=== PATIENT | female | born 1990 | race Caucasian/White ===

== ENCOUNTER 2019-09-11 21:53 | Inpatient (IN) ==
[~2019-09-11 21:53] MED LIST: ETOMIDATE 2 MG/ML 20 ML VIAL IV ONE; ROCURONIUM BROMIDE 10 MG/ML 10 ML VIAL IV ONE
[2019-09-11] MEDS ORDERED: ONDANSETRON INJ 2 MG/ML 2 ML VIAL ONE (21:59)
[2019-09-11] MEDS ORDERED: LORazepam 2 MG/ML VIAL (IM USE) ONE (22:01)
[2019-09-11] MEDS ORDERED: SODIUM CHLORIDE 0.9% 1000ML 1,000 ML IV SCH (22:15)
[2019-09-11] MEDS ORDERED: RAPID SEQUENCE INDUCTION BAG ONE (22:28)
[2019-09-11] MEDS ORDERED: PROPOFOL IV EMULSION 10 MG/ML 20 ML VIAL IV ONE (22:31)
[2019-09-11 22:32] LABS: Basophils # (auto) 0.02 K/uL (0-0.2); Basophils % (auto) 0.1 %; Eosinophils # (auto) 0.08 K/uL (0-0.5); Eosinophils % (auto) 0.5 %; Hematocrit (blood only) 43.5 % (37-47); Hemoglobin 15.1 g/dL (12.0-16.0); Immature Granulocytes # (auto) 0.04 K/uL (0.00-0.02); Immature Granulocytes % (auto) 0.2 %; Lymphocytes # (auto) 2.85 K/uL (1.2-3.4); Lymphocytes % (auto) 17.7 %; Mean Corpuscular Hemoglobin 30.3 pg (25-34); Mean Corpuscular Hgb Conc 34.7 g/dL (32-36); Mean Corpuscular Volume 87.3 fL (80-100); Mean Platelet Volume 10.3 fL (7.4-10.4); Monocytes # (auto) 1.38 K/uL (0.11-0.59); Monocytes % (auto) 8.6 %; Neutrophils # (auto) 11.76 K/uL (1.4-6.5); Neutrophils % (auto) 72.9 %; Platelet Count 406 K/uL (130-400); RDW Coefficient of Variation 13.6 % (11.5-14.5); RDW Standard Deviation 43.4 fL (36.4-46.3); Red Blood Count 4.98 M/uL (4.2-5.4); White Blood Count 16.13 K/uL (4.8-10.8)
[2019-09-11] MEDS ORDERED: PROPOFOL IV EMULSION 10 MG/ML 100 ML VIAL IV ONE (22:32)
[2019-09-11] MEDS ORDERED: STAT IV Infusion **Titration per Protocol STA (22:39)
[2019-09-11 22:41] LABS: Prothrombin Time 10.3 Seconds (9.0-12.0)
[2019-09-11] MEDS ORDERED: ETOMIDATE 2 MG/ML 20 ML VIAL IV ONE (22:41)
[2019-09-11] MEDS ORDERED: ROCURONIUM BROMIDE 10 MG/ML 5 ML VIAL IV STA (22:41)
[2019-09-11] MEDS: propofoL 1,000 MG/100 ML VIAL IV SCH (22:43)
[2019-09-11 22:50] LABS: Alanine Aminotransferase 23 U/L (12-78); Albumin Level 3.9 gm/dl (3.4-5.0); Aspartate Aminotransferase 22 U/L (15-37); BUN Creatinine Ratio 9.5 (10-20); Blood Urea Nitrogen 8 mg/dl (7-18); Calcium 9.5 mg/dl (8.5-10.1); Carbon Dioxide 24 mmol/L (21-32); Chloride 108 mmol/L (98-107); Creatinine Clr Calc Pharmacy 98.1 ml/min; Est GFR (Non-African American) 97.5; Glucose 132 mg/dl (70-99); Magnesium 2.1 mg/dl (1.8-2.4); Potassium 3.1 mmol/L (3.5-5.1); Sodium 140 mmol/L (136-145)
[2019-09-11 22:52] LABS: Acetaminophen < 2 ug/ml (10-30); Salicylate 2.9 mg/dl (2.8-20)
[2019-09-11 22:54] LABS: Albumin Globulin Ratio 1.1 (0.9-2); Alkaline Phosphatase 72 U/L (45-117); Bilirubin,Total 0.3 mg/dl (0.2-1); Creatine Kinase 117 U/L (26-192); Globulin 3.4 gm/dl (2.5-4.0); Total Protein 7.3 gm/dl (6.4-8.2); Troponin I < 0.015 ng/ml (0-0.045)
[2019-09-11 23:04] LABS: Pregnancy Test, Serum Negative (Negative)
[2019-09-11 23:42] LABS: Appearance Urine Cloudy (Clear); Bilirubin Urine Negative (Negative); Blood Urine Negative (Negative); Color Urine Yellow; Epithelial Cell Urine Auto >30 /lpf (0-5); Glucose Urine UA Negative (Negative); Ketones Urine 1+ (Negative); Leukocyte Esterase Urine Negative (Negative); Nitrite Urine Negative (Negative); Protein Urine Negative (Negative); RBC Urine Automated 0-4 /hpf (0-4); Specific Gravity Urine 1.015 (1.000-1.030); Urobilinogen Urine Negative (Negative)
--- NOTE | 2019-09-11 23:45 | History & Physical Report ---
Date of Service September 11, 2019 Assessment & Plan (1) AMS (altered mental status): Patient presented to the emergency department with altered mental state. Urine drug screen is pending at this time, however, patient was felt to have taken a complete month supply of her prescription Trileptal and gabapentin. She is also on methadone for opiate dependence, and unknown if taken additional dosings at this time as well. Patient developed progressively altered mentation, with intractable vomiting, and was intubated in the emergency department for airway protection. Admit to intensive care unit. Order serial CBC with differential, chemistry profile, magnesium, lipase, PT/PTT/INR and ABGs. Adjustments in ventilator as testing requires. Continue Diprovan for sedation. NSS + KCl 20 mEq at 100 mils per hour Zofran 4 mg IV every 6 hours as needed Famotidine 20 mg IV every 12 hours Present on Admission?: Yes (2) Admitted to intensive care unit: Consult lead relay tester Dr. Yanes. Present on Admission?: Yes (3) Overdose: Presumed overdose intentionally of Trileptal and gabapentin. We will follow results of urine drug screen for any other potential drugs. She is also on methadone for long-term opiate dependence Present on Admission?: Yes (4) Acute respiratory failure with hypoxia: See above Present on Admission?: Yes (5) Nausea & vomiting: See above Present on Admission?: Yes (6) Bipolar disorder: Patient had refills of unknown doses of Trileptal and gabapentin by outpatient psychiatry Present on Admission?: Yes (7) Long-term current use of methadone for opiate dependence: Will verify dosing of methadone. Patient is intubated and sedated, and not needed at this time. Present on Admission?: Yes (8) Bleeding stomach ulcer: Placed on famotidine 20 mg IV every 12 hours Present on Admission?: Yes History of Present Illness Chief Complaint: The patient was brought to the emergency department via ambulance, after found by her boyfriend to have a possible intentional drug ove rdose. Primary Care Provider: NO PCP The patient is a 28-year-old female with a past medical history including asthma, bipolar disorder, opiate dependence, and insomnia, who was brought to the emergency department due to concerns of her boyfriend regarding a possible intentional drug overdose. He reports that she had taken at least 30 days worth, up to 60 pills of Trileptal and gabapentin prescription, which she had just filled yesterday. She had also told her boyfriend that she could do a better job of killing herself and he did, as he is himself recovering from a suicide attempt. EMS reports that the patient was initially responsive upon arrival there to her home, but became minimally responsive, with vomiting and thrashing in the bed when arrived to the ED, and was then intubated for airway protection. The patient is also reportedly on an unknown dose of methadone, and is marijuana dependent. Allergies Allergy/AdvReac Type Severity Reaction Status Date / Time azithromycin [From Zithromax] Allergy Unknown Rash Verified 06/11/19 12:59 Penicillins Allergy Unknown RASH Verified 06/11/19 12:59 valproic acid Allergy Unknown Unknown Verified 06/11/19 12:59 amoxicillin [From Augmentin] Allergy Verified 06/11/19 12:59 clavulanic acid Allergy Verified 06/11/19 12:59 [From Augmentin] divalproex sodium Allergy Anaphylaxis Verified 06/11/19 13:08 [From Depakote] Home Medications Home Medications Medication Instructions Recorded Confirmed Type Unobtainable 09/11/19 09/11/19 History Past Med/Surg History Medical History (Updated 09/12/19 @ 01:36 by Bruce Chou MD) Asthma (Chronic) Bipolar disorder (Chronic) Bleeding stomach ulcer Bronchitis (Resolved) Chlamydia contact (Resolved) Dehydration (Inactive) Elective Exposure to chlamydia (Resolved) Extremity edema (Inactive) Extremity pain (Inactive) Gastritis (Inactive) HTN (hypertension) (Inactive) Hx of varicella Insomnia (Chronic) LGSIL on Pap smear of cervix Long-term current use of methadone for opiate dependence Maternal kidney stone Miscarriage Opiate withdrawal (Resolved) Pain, dental (Inactive) Pneumonia (Resolved) Right foot sprain (Inactive) Vaginal delivery Vomiting (Inactive) Surgical History (Updated 06/11/19 @ 13:24 by Cassy Arellano) H/O LEEP History of tonsillectomy (Resolved) S/P ureteral stent placement placement and removal in 2019 Social History (Updated 06/11/19 @ 13:33 by Cassy Arellano) Preferred Language: Pashto Communication Ability: intubated Beliefs That Will Affect Care: None marital status: Single marital status details: ALEYDA Johnathon Schultz (38) [phone] Current Living Situation: Spouse Current Living Situation Comment: lives with FOB, 1 dog, 1 cat, does not change litter current occupational status: unemployed Feels Safe at Home: Yes Smoking Status: Current every day smoker Tobacco Type: cigarettes ; Second Hand Exposure: Yes ; Hx Alcohol Use: No Hx Substance Use: No Review of Systems Review of Systems: Physical Exam Physical Exam: The patient is sedated and intubated, normocephalic and atraumatic, lying in bed and in otherwise no acute distress. HEENT--PERRL, EOMI, mucous membranes and oropharynx dry. Neck--supple. No JVD. No bruits. Thyroid normal, trachea midline, no adenopathy. Heart--normal S1 and S2. No murmurs, rubs or gallops. Lungs--few coarse breath sounds bilaterally. Intubated. Abdomen--normal bowel sounds and soft. Nontender. Nondistended. Extremities--no cyanosis or clubbing. No edema. There are good distal pulses b/l. Dermatologic--psoriasis on knees bilaterally, with scattered MRSA-like papular areas on legs bilaterally. Neurologic--limited exam Rheumatologic--limited exam Psychiatric--intubated and sedated Results & Data Results & Data ([facility]) Vital Signs (Past 12 Hours) Vital Signs Temp Pulse Resp BP Pulse Ox 09/11/19 23:41 70 18 98 09/11/19 23:40 69 18 110/73 98 09/11/19 23:31 70 20 99 09/11/19 23:30 71 18 108/73 99 09/11/19 23:21 70 18 100 09/11/19 23:20 71 25 H 113/87 100 09/11/19 23:17 72 18 100 09/11/19 23:11 72 17 100 09/11/19 23:10 71 14 118/90 100 09/11/19 23:01 74 16 100 09/11/19 23:00 74 17 123/93 100 09/11/19 22:51 86 18 100 09/11/19 22:50 86 16 127/91 100 09/11/19 22:49 87 16 120/92 100 09/11/19 22:40 108 H 8 L 09/11/19 22:36 75 14 09/11/19 22:31 90 6 L 09/11/19 22:30 88 9 L 134/81 99 09/11/19 22:29 97 H 11 L 131/100 100 09/11/19 22:22 98.6 F 132 H 9 L 152/97 H 88 L 09/11/19 22:21 13 99 09/11/19 22:20 96 H 11 L 135/96 100 09/11/19 22:14 108 H 15 135/90 96 09/11/19 22:13 120 H 17 85 L 09/11/19 21:57 114 H 20 152/97 H 98 Laboratory Results Laboratory Results WBC 16.13 K/uL (4.8-10.8) H 09/11/19 22:08 RBC 4.98 M/uL (4.2-5.4) 09/11/19 22:08 Hgb 15.1 g/dL (12.0-16.0) 09/11/19 22:08 Hct 43.5 % (37-47) 09/11/19 22:08 MCV 87.3 fL (80-100) 09/11/19 22:08 MCH 30.3 pg (25-34) 09/11/19 22:08 MCHC 34.7 g/dL (32-36) 09/11/19 22:08 RDW Std Deviation 43.4 fL (36.4-46.3) 09/11/19 22:08 RDW Coeff of Carey 13.6 % (11.5-14.5) 09/11/19 22:08 Plt Count 406 K/uL (130-400) H 09/11/19 22:08 MPV 10.3 fL (7.4-10.4) 09/11/19 22:08 Immature Gran % (Auto) 0.2 % 09/11/19 22:08 Neut % (Auto) 72.9 % 09/11/19 22:08 Lymph % (Auto) 17.7 % 09/11/19 22:08 Island % (Auto) 8.6 % 09/11/19 22:08 Eos % (Auto) 0.5 % 09/11/19 22:08 Baso % (Auto) 0.1 % 09/11/19 22:08 Neut # (Auto) 11.76 K/uL (1.4-6.5) H 09/11/19 22:08 Lymph # (Auto) 2.85 K/uL (1.2-3.4) 09/11/19 22:08 Island # (Auto) 1.38 K/uL (0.11-0.59) H 09/11/19 22:08 Eos # (Auto) 0.08 K/uL (0-0.5) 09/11/19 22:08 Baso # (Auto) 0.02 K/uL (0-0.2) 09/11/19 22:08 Immature Gran # (Auto) 0.04 K/uL (0.00-0.02) H 09/11/19 22:08 PT 10.3 Seconds (9.0-12.0) 09/11/19 22:08 INR 1.0 (0.9-1.1) 09/11/19 22:08 Sodium 140 mmol/L (136-145) 09/11/19 22:08 Potassium 3.1 mmol/L (3.5-5.1) L 09/11/19 22:08 Chloride 108 mmol/L (98-107) H 09/11/19 22:08 Carbon Dioxide 24 mmol/L (21-32) 09/11/19 22:08 Anion Gap 8.0 (3-11) 09/11/19 22:08 BUN 8 mg/dl (7-18) 09/11/19 22:08 Creatinine 0.81 mg/dl (0.6-1.2) 09/11/19 22:08 Est Cr Clr Drug Dosing 98.1 ml/min 09/11/19 22:08 Est GFR ( Amer) 113.0 09/11/19 22:08 Est GFR (Non-Af Amer) 97.5 09/11/19 22:08 BUN/Creatinine Ratio 9.5 (10-20) L 09/11/19 22:08 Glucose 132 mg/dl (70-99) H 09/11/19 22:08 Osmolality 289 mOsm/kg (280-300) 09/11/19 22:08 Calcium 9.5 mg/dl (8.5-10.1) 09/11/19 22:08 Magnesium 2.1 mg/dl (1.8-2.4) 09/11/19 22:08 Total Bilirubin 0.3 mg/dl (0.2-1) 09/11/19 22:08 AST 22 U/L (15-37) 09/11/19 22:08 ALT 23 U/L (12-78) 09/11/19 22:08 Alkaline Phosphatase 72 U/L (45-117) 09/11/19 22:08 Total Creatine Kinase 117 U/L (26-192) 09/11/19 22:08 Troponin I < 0.015 ng/ml (0-0.045) 09/11/19 22:08 Total Protein 7.3 gm/dl (6.4-8.2) 09/11/19 22:08 Albumin 3.9 gm/dl (3.4-5.0) 09/11/19 22:08 Globulin 3.4 gm/dl (2.5-4.0) 09/11/19 22:08 Albumin/Globulin Ratio 1.1 (0.9-2) 09/11/19 22:08 HCG, Qual Negative (Negative) 09/11/19 22:08 Urine Color Yellow 09/11/19 22:48 Urine Appearance Cloudy (Clear) A 09/11/19 22:48 Urine pH 8.0 (4.5-7.5) H 09/11/19 22:48 Ur Specific Banner 1.015 (1.000-1.030) 09/11/19 22:48 Urine Protein Negative (Negative) 09/11/19 22:48 Urine Glucose (UA) Negative (Negative) 09/11/19 22:48 Urine Ketones 1+ (Negative) H 09/11/19 22:48 Urine Blood Negative (Negative) 09/11/19 22:48 Urine Nitrite Negative (Negative) 09/11/19 22:48 Urine Bilirubin Negative (Negative) 09/11/19 22:48 Urine Urobilinogen Negative (Negative) 09/11/19 22:48 Ur Leukocyte Esterase Negative (Negative) 09/11/19 22:48 Urine WBC (Auto) 1-5 /hpf (0-5) 09/11/19 22:48 Urine RBC (Auto) 0-4 /hpf (0-4) 09/11/19 22:48 U Hyaline Cast (Auto) 1-5 /lpf (0-5) 09/11/19 22:48 U Epithel Cells (Auto) >30 /lpf (0-5) H 09/11/19 22:48 Urine Bacteria (Auto) 2+ (Negative) H 09/11/19 22:48 Ur Renal Epithelial Cell Not Reportable 09/11/19 22:48 Salicylates 2.9 mg/dl (2.8-20) 09/11/19 22:08 Urine Opiates Screen Neg (Neg) 09/11/19 22:48 Ur Methadone, Qual Pos (Neg) H 09/11/19 22:48 Acetaminophen < 2 ug/ml (10-30) L 09/11/19 22:08 Urine Barbiturates Neg (Neg) 09/11/19 22:48 Ur Phencyclidine (PCP) Neg (Neg) 09/11/19 22:48 U Amphetamin/Meth Scrn Neg (Neg) 09/11/19 22:48 MDMA (Ecstasy) Screen Neg (Neg) 09/11/19 22:48 U Benzodiazepines Scrn Neg (Neg) 09/11/19 22:48 Ur Cocaine Metabolite Neg (Neg) 09/11/19 22:48 U Marijuana (THC) Screen Pos (Neg) H 09/11/19 22:48 Ethyl Alcohol mg/dL < 3.0 mg/dl (0-3) 09/11/19 22:08 Diagnostic Findings [facility] Patient: ANASTACIO CERVANTES (Female) : 86 Status: IP Date: 09/12/19 00:42 Room #: 101 History: OVERDOSE AMS Slices: 66 Priors: Tech: Shawn Mayes @ [phone] Exams: CT HEAD Accession Numbers: [id number] Preliminary Findings Only See Final Report For Complete Findings CT HEAD: No ICH, mass effect or edema. No evidence of acute cortical stroke. No midline shift or hydrocephalus. Mucous retention cyst at the maxillary sinuses. Scattered paranasal sinus mucosal thickening. Radiologist: Navi Pamler M.D. Study ready at 00:43 and initial results transmitted at 01:21 Results also transmitted to [address] [place] [address] ICU @ [phone] (Fax) *This report constitutes a preliminary interpretation only. Non-acute findings felt to be unrelated to the clinical presentation may not be discussed in this report. The study will be interpreted and a final report will be generated by the local Radiologist the following shift. To reach the hospital radiology department call [phone]. If a discrepancy is found between the preliminary and final interpretations of this study, please notify us via our Client Portal at [email or web address], under QA Exams.You can also fax this report with a description of the discrepancy, or include the final report, to our daytime fax number [phone].If faxing, please indicate the severity of discrepancy using one of the following categories: [ ] 1 - Agree/Informational [ ] 2 - Unlikely to Affect Management [ ] 3 - Possible Eventual Change of Management [ ] 4 - Probable Immediate Change of Management For all other patient related information, please fax us at [phone]. [id number] Code Status & VTE Plan Code Status Full code VTE Prophylaxis Plan VTE Prophylaxis will be ordered: Yes Critical Care Time Critical Care Time: Yes Total Critical Care Time: 45 Total critical care time was 45 minutes PG Care Time/CCT Total # of Minutes Spent Total Time Spent with Patient: Total time spent is greater than 50% in coordination of care (as documented) at patient's floor/unit and/or counseling patient: Critical Care Time: Yes Total Critical Care Time: 45 Coding Level of Care Code 58337 Initial Inpt Care Lvl 3 Diagnoses AMS (altered mental status) R41.82 Altered mental status type: unspecified Admitted to intensive care unit Z78.9 Overdose T50.904A Encounter type: initial encounter Injury intent: undetermined intent Acute respiratory failure with hypoxia J96.01 Nausea & vomiting R11.2 Vomiting Intractability: unspecified Vomiting type: unspecified Bipolar disorder F31.9 Long-term current use of methadone for opiate dependence F11.20 Bleeding stomach ulcer K25.4 Additional Codes Critical Care Time - Critical Care Time: Yes ([id number]) Time Spent (min) 45 (1) Overdose Encounter type: initial encounter Injury intent: undetermined intent Qualified Code(s): T50.904A - Poisoning by unspecified drugs, medicaments and biological substances, undetermined, initial encounter (2) Nausea & vomiting Vomiting Intractability: unspecified Vomiting type: unspecified Qualified Code(s): R11.2 - Nausea with vomiting, unspecified (3) AMS (altered mental status) Altered mental status type: unspecified Qualified Code(s): R41.82 - Altered mental status, unspecified
[2019-09-12 00:03] LABS: Bacteria Urine Automated 2+ (Negative)
[2019-09-12 00:12] LABS: Amphetamines+Metham, Urine Neg (Neg); Barbiturates, Urine Neg (Neg); Benzodiazepine, Urine Neg (Neg); Cocaine, Urine Neg (Neg); MDMA (Ecstacy), Urine Neg (Neg); Methadone, Urine Pos (Neg); Opiate, Urine Neg (Neg); Phencyclidine, Urine Neg (Neg)
[2019-09-12] MEDS: PROPOFOL BOLUS FROM BAG IV PRN ×2 (00:35→00:40)
[2019-09-12] MEDS ORDERED: ICU PROTOCOL FOR HYPERGLYCEMIA PRN (00:53)
[2019-09-12] MEDS ORDERED: FAMOTIDINE 20 MG in SYRINGE 3 ML IV SCH (01:00)
--- NOTE | 2019-09-12 01:03 | Emergency Department Note ---
Impression & Plan AMS (altered mental status), Overdose, Acute respiratory failure with hypoxia, Nausea & vomiting ED Provider Note Provider: Jose Chu MD DATE OF SERVICE: 09/11/2019 CHIEF COMPLAINT: Overdose HISTORY OF PRESENT ILLNESS: Patient is a 28-year-old female with a history of methadone dependence, bipolar disorder, asthma presenting today via ambulance from home after her boyfriend became concerned about a possible overdose. EMS states the patient was alert for them but just prior to arrival became less responsive. Was called to the room by staff as upon arrival the patient was minimally responsive and vomiting and thrashing in bed. Seen immediately in room A4. Patient's eyes are closed. Not following commands. She relays to loud verbal stimuli that she took some Trileptal but is unsure if she did this to harm her self. She is unable provide additional history. EMS state that 300 mg Trileptal tablets approximately up to 60 were taken as well as some gabapentin. The patient is also reportedly on methadone. No additional history of trauma or infectious symptoms are reported. Patient's boyfriend, Sreekanth, later calls (after the patient's been intubated) and gives additional information. Case management also get information from crisis and the boyfriend and them indicates that he became concerned over the last several days about her (the patient) and had her see a psychiatrist yesterday prescribed gabapentin and Trileptal and many of these pills are missing today although the exact amount is somewhat questionable. Reported marijuana usage and does go and get methadone given out daily. He reports to me that she said that she could commit suicide better than him and that was why she was doing this. Patient is again unable to directly provide significant history to me here. REVIEW OF SYSTEMS: Limited secondary to mental status PAST MEDICAL HISTORY: As noted above MEDICATIONS: Limited secondary mental status but reported methadone, gabapentin, and Trileptal FMH: Limited secondary mental status SOCIAL HISTORY: Reported history of methadone use and narcotic use in the past, reported use of marijuana, an additional limited secondary to mental status PHYSICAL EXAM: GENERAL: Patient lying on stretcher with eyes closed head to the side with dried vomitus on the face and neck. Patient alert to very loud verbal stimuli and sternal rub at this time/painful stimuli. Head: normocephalic and atraumatic with some dried vomitus over the lower face and neck. EYES: No injection, discharge or icterus. Pupils reactive to light and 5 mm bilaterally. NECK: Trachea midline. Supple. Some dried vomitus on the neck. ENT: Mucous membranes pink and moist. LUNGS: Airway patent. No retractions. Breath sounds clear HEART: Tachycardic rate and rhythm. No chest wall tenderness ABDOMEN: Soft and non-tender, without guarding or rebound. SKIN: Acyanotic, warm, dry. There are scattered superficial abrasion or pick holley on the upper and lower extremities with psoriatic plaques on the bilateral extensor elbows. EXTREMITIES: No significant swelling. There are again as noted in the skin section superficial wounds on the bilateral forearms consistent with pick holley without gross signs of infection. There are psoriatic plaques on the dorsal aspect of the bilateral elbows. There are 2 linear partially healed superficial cuts on the bilateral thighs just distal to the inguinal line. These are linear without signs of infection and have no active bleeding. Do not have significant healing and would estimate fairly recent in nature. NEUROLOGICAL: Patient moving all extremities withdraw his pain. Not particularly following commands. Occasionally will speak but not providing significant answers. Moans to painful stimuli. Patient does have 2-3 beat bilateral clonus in lower extremities upon initial exam. EKG: Sinus tachycardia 118 bpm. No PVC. No acute ST segment elevation is noted. QTC of 468. There is some baseline wander artifact but do not see clear ST segment depression either. Normal axis. CONTNUOUS CARDIAC MONITORING: was ordered and showed a heart rate of 84 bpm in normal sinus rhythm Patient's hypertension was referred to the hospitalist HOSPITAL COURSE: 2201 Patient was first seen and H&P performed. Patient is intermittently thrashing with eyes closed not really following commands. Patient will occasionally roll over and vomit. 223 call back to room A4 and the patient is now somnolent on nonrebreather and with shallow respiratory effort. Moved to room A1. 2239 intubation performed without complication 2300 patient reassessed and stable on ventilator and propofol drip. 2340 discussed with the hospitalist for further inpatient care. ED Intubation Indication airway protection due to vomiting and somnolence as well as hypoxia The patient was on 100% oxygen via NRB prior to the procedure. Suction, airway equipment, RSI drugs, respiratory equipment, and appropriate personnel were prepared prior to the initiation of the procedure. A time out was taken. Induction was performed with 20 mg of etomidate and paralysis with 75 mg rocuronium. After observing the clinical benefit of the medications, the airway was easily visualized utilizing a glide scope with a #3 blade. A 7.5 size ETT tube was placed atraumatically to 21 cm at the teeth using standard technique. The cuff inflated without signs of malfunction. There were bilateral breath sounds, positive colormetric change, no gastric sounds, and post procedure pulse oximetry was 99%. Post intubation sedation was completed with a propofol drip. There were no complications. Post procedure chest x-ray appears satisfactory positioning of the tube. Patient's laboratory studies and imaging reviewed. Differential includes Mood disorder, infection, hypoglycemia, electrolyte abnormalities, cardiac sources, intracerebral event, toxicologic, trauma, neur ologic, as well as other pathologies. 1 view chest x-ray per my review and interpretation shows no pneumothorax or pneumonia, intubation with ET tube in satisfactory position. No evidence of acute bony abnormality. IMPRESSION/MEDICAL DECISION MAKING: Patient presents today appears acutely altered and questions a possible suicide attempt and overdose. Patient pupils are prickly pinpoint low suspicion this is acute narcotic overdose. Discussed with poison control. The gabapentin Trileptal can cause somnolence as well as respiratory depression. EKG without significant interval abnormalities although the QTC is just mildly prolonged. Electrolytes without significant abnormality. Slight leukocytosis is noted likely stress response and nonspecific. There is no significant evidence of trauma and I doubt acute intracranial injury. There is no significant anion gap. No evidence of liver dysfunction. is negative. UDS is positive for methadone and marijuana use is consistent with history. [employer] is undetectable salicylates just barely detectable. Supportive care. Initially try to avoid intubation and provided some Zofran to help with nausea symptoms. Patient later was less responsive and was shallow aspirations and hypoxic on room air placed on a nonrebreather. Taken to resuscitation room and was intubated for airway protection. This was completed uneventfully with etomidate and rocuronium. Propofol drip for postintubation sedation. Satisfactory ET tube placement on chest x-ray. Discussed with the hospitalist for admission for supportive care overnight. The patient will need further inpatient psychiatric consultation/evaluation due to the concerning events surrounding what sounds like a suicide/overdose attempt. Patient is hemodynamically stable after intubation and CT head complete without acute intracranial abnormality noted per stat read on my review of the images. She is stable for transfer to the ICU at this time. DIAGNOSIS: Overdose, acute hypoxic respiratory failure, vomiting DISPOSITION: Admitted Critical Care I have personally spent 48 minutes of critical care time in the direct management of this patient. This includes bedside care, interpretation of diagnostic studies, and testing, discussion with consultants, patient, and family members, and other required patient management activities. These 48 minutes is in excess of all separately billable procedures. Preliminary Findings Only See Final Report For Complete Findings CT HEAD: No ICH, mass effect or edema. No evidence of acute cortical stroke. No midline shift or hydrocephalus. Mucous retention cyst at the maxillary sinuses. Scattered paranasal sinus mucosal thickening. Radiologist: Navi Palmer M.D. Study ready at 00:43 and initial results transmitted at 01:21 Results also transmitted to [facility] Floor ICU @ [phone] (Fax) Past Med/Surg History Medical History (Updated 09/12/19 @ 01:05 by Jose Chu M.D.) Asthma (Chronic) Bipolar disorder (Chronic) Bleeding stomach ulcer (Resolved) Bronchitis (Resolved) Chlamydia contact (Resolved) Dehydration (Inactive) Elective Exposure to chlamydia (Resolved) Extremity edema (Inactive) Extremity pain (Inactive) Gastritis (Inactive) HTN (hypertension) (Inactive) Hx of varicella Insomnia (Chronic) LGSIL on Pap smear of cervix Maternal kidney stone Miscarriage Opiate withdrawal (Resolved) Pain, dental (Inactive) Pneumonia (Resolved) Right foot sprain (Inactive) Vaginal delivery Vomiting (Inactive) Surgical History (Updated 06/11/19 @ 13:24 by Cassy rAellano) H/O LEEP History of tonsillectomy (Resolved) S/P ureteral stent placement placement and removal in 2019 Social History (Updated 06/11/19 @ 13:33 by Cassy Arellano) Preferred Language: Maltese Communication Ability: intubated Beliefs That Will Affect Care: None marital status: Single marital status details: ALEYDA Schultz (38) [phone] Current Living Situation: Spouse Current Living Situation Comment: lives with ALEYDA, 1 dog, 1 cat, does not change litter current occupational status: unemployed Feels Safe at Home: Yes Smoking Status: Current every day smoker Tobacco Type: cigarettes ; Second Hand Exposure: Yes ; Hx Alcohol Use: No Hx Substance Use: No Allergies Allergies Allergy/AdvReac Type Severity Reaction Status Date / Time azithromycin [From Zithromax] Allergy Unknown Rash Verified 06/11/19 12:59 Penicillins Allergy Unknown RASH Verified 06/11/19 12:59 valproic acid Allergy Unknown Unknown Verified 06/11/19 12:59 amoxicillin [From Augmentin] Allergy Verified 06/11/19 12:59 clavulanic acid Allergy Verified 06/11/19 12:59 [From Augmentin] divalproex sodium Allergy Anaphylaxis Verified 06/11/19 13:08 [From Depakote] Home Meds Home Medications Medication Instructions Recorded Confirmed Unobtainable 09/11/19 09/11/19 Results & Data (ED) Vital Signs Vital Signs - 24 hr 09/11/19 21:57 09/11/19 22:13 09/11/19 22:14 Temperature Temperature Source Pulse Rate 114 H 120 H 108 H Pulse Rate from SpO2 Sensor 114 H 120 H 106 H Respiratory Rate 20 17 15 Respiratory Depth Blood Pressure 152/97 H 135/90 Blood Pressure Mean 103 98 Pulse Oximetry 98 85 L 96 Oxygen Delivery Method Room Air Non-rebreather Oxygen Flow Rate 15 Fraction of Inspired Oxygen Sepsis New/Unexplained Change in Mental Status Sepsis Action Taken by Nursing 09/11/19 22:20 09/11/19 22:21 09/11/19 22:22 Temperature 37.0 C Temperature Source Oral Pulse Rate 96 H 132 H Pulse Rate from SpO2 Sensor 96 H 92 H Respiratory Rate 11 L 13 9 L Respiratory Depth Shallow Blood Pressure 135/96 152/97 H Blood Pressure Mean 107 115 Pulse Oximetry 100 99 88 L Oxygen Delivery Method Room Air Oxygen Flow Rate Fraction of Inspired Oxygen Sepsis New/Unexplained Change in Mental Status No Sepsis Action Taken by Nursing No Action Required 09/11/19 22:29 09/11/19 22:30 09/11/19 22:31 Temperature Temperature Source Pulse Rate 97 H 88 90 Pulse Rate from SpO2 Sensor 98 H 88 88 Respiratory Rate 11 L 9 L 6 L Respiratory Depth Blood Pressure 131/100 134/81 Blood Pressure Mean 107 85 Pulse Oximetry 100 99 100 Oxygen Delivery Method Oxygen Flow Rate Fraction of Inspired Oxygen Sepsis New/Unexplained Change in Mental Status Sepsis Action Taken by Nursing 09/11/19 22:36 09/11/19 22:40 09/11/19 22:49 Temperature Temperature Source Pulse Rate 75 108 H 87 Pulse Rate from SpO2 Sensor 108 H 87 Respiratory Rate 14 8 L 16 Respiratory Depth Blood Pressure 120/92 Blood Pressure Mean 102 Pulse Oximetry 100 100 100 Oxygen Delivery Method Oxygen Flow Rate Fraction of Inspired Oxygen 50 Sepsis New/Unexplained Change in Mental Status Sepsis Action Taken by Nursing 09/11/19 22:50 09/11/19 22:51 09/11/19 23:00 Temperature Temperature Source Pulse Rate 86 86 74 Pulse Rate from SpO2 Sensor 86 86 74 Respiratory Rate 16 18 17 Respiratory Depth Blood Pressure 127/91 123/93 Blood Pressure Mean 101 97 Pulse Oximetry 100 100 100 Oxygen Delivery Method Oxygen Flow Rate Fraction of Inspired Oxygen Sepsis New/Unexplained Change in Mental Status Sepsis Action Taken by Nursing 09/11/19 23:01 09/11/19 23:10 09/11/19 23:11 Temperature Temperature Source Pulse Rate 74 71 72 Pulse Rate from SpO2 Sensor 73 71 71 Respiratory Rate 16 14 17 Respiratory Depth Blood Pressure 118/90 Blood Pressure Mean 95 Pulse Oximetry 100 100 100 Oxygen Delivery Method Oxygen Flow Rate Fraction of Inspired Oxygen Sepsis New/Unexplained Change in Mental Status Sepsis Action Taken by Nursing 09/11/19 23:17 09/11/19 23:20 09/11/19 23:21 Temperature Temperature Source Pulse Rate 72 71 70 Pulse Rate from SpO2 Sensor 71 70 Respiratory Rate 18 25 H 18 Respiratory Depth Blood Pressure 113/87 Blood Pressure Mean 101 Pulse Oximetry 100 100 100 Oxygen Delivery Method Mechanical Vent Mechanical Vent Oxygen Flow Rate Fraction of Inspired Oxygen 40 50 50 Sepsis New/Unexplained Change in Mental Status Sepsis Action Taken by Nursing 09/11/19 23:30 09/11/19 23:31 09/11/19 23:40 Temperature Temperature Source Pulse Rate 71 70 69 Pulse Rate from SpO2 Sensor 71 70 70 Respiratory Rate 18 20 18 Respiratory Depth Blood Pressure 108/73 110/73 Blood Pressure Mean 85 84 Pulse Oximetry 99 99 98 Oxygen Delivery Method Mechanical Vent Mechanical Vent Mechanical Vent Oxygen Flow Rate Fraction of Inspired Oxygen 50 50 30 Sepsis New/Unexplained Change in Mental Status Sepsis Action Taken by Nursing 09/11/19 23:41 Temperature Temperature Source Pulse Rate 70 Pulse Rate from SpO2 Sensor 70 Respiratory Rate 18 Respiratory Depth Blood Pressure Blood Pressure Mean Pulse Oximetry 98 Oxygen Delivery Method Mechanical Vent Oxygen Flow Rate Fraction of Inspired Oxygen 30 Sepsis New/Unexplained Change in Mental Status Sepsis Action Taken by Nursing Laboratory Data Result diagrams: 09/11/19 22:08 09/11/19 22:08 Lab Results 09/11/19 09/11/19 09/11/19 Range/Units 22:08 22:08 22:08 WBC 16.13 H (4.8-10.8) K/uL RBC 4.98 (4.2-5.4) M/uL Hgb 15.1 (12.0-16.0) g/dL Hct 43.5 (37-47) % MCV 87.3 (80-100) fL MCH 30.3 (25-34) pg MCHC 34.7 (32-36) g/dL RDW Std Deviation 43.4 (36.4-46.3) fL RDW Coeff of Carey 13.6 (11.5-14.5) % Plt Count 406 H (130-400) K/uL MPV 10.3 (7.4-10.4) fL Immature Gran % (Auto) 0.2 % Neut % (Auto) 72.9 % Lymph % (Auto) 17.7 % Miner % (Auto) 8.6 % Eos % (Auto) 0.5 % Baso % (Auto) 0.1 % Neut # (Auto) 11.76 H (1.4-6.5) K/uL Lymph # (Auto) 2.85 (1.2-3.4) K/uL Miner # (Auto) 1.38 H (0.11-0.59) K/uL Eos # (Auto) 0.08 (0-0.5) K/uL Baso # (Auto) 0.02 (0-0.2) K/uL Immature Gran # (Auto) 0.04 H (0.00-0.02) K/uL PT 10.3 (9.0-12.0) Seconds INR 1.0 (0.9-1.1) Sodium 140 (136-145) mmol/L Potassium 3.1 L (3.5-5.1) mmol/L Chloride 108 H (98-107) mmol/L Carbon Dioxide 24 (21-32) mmol/L Anion Gap 8.0 (3-11) BUN 8 (7-18) mg/dl Creatinine 0.81 (0.6-1.2) mg/dl Est Cr Clr Drug Dosing 98.1 ml/min Est GFR ( Amer) 113.0 Est GFR (Non-Af Amer) 97.5 BUN/Creatinine Ratio 9.5 L (10-20) Glucose 132 H (70-99) mg/dl Osmolality (280-300) mOsm/kg Calcium 9.5 (8.5-10.1) mg/dl Magnesium 2.1 (1.8-2.4) mg/dl Total Bilirubin 0.3 (0.2-1) mg/dl AST 22 (15-37) U/L ALT 23 (12-78) U/L Alkaline Phosphatase 72 (45-117) U/L Total Creatine Kinase 117 (26-192) U/L Troponin I < 0.015 (0-0.045) ng/ml Total Protein 7.3 (6.4-8.2) gm/dl Albumin 3.9 (3.4-5.0) gm/dl Globulin 3.4 (2.5-4.0) gm/dl Albumin/Globulin Ratio 1.1 (0.9-2) HCG, Qual (Negative) Urine Color Urine Appearance (Clear) Urine pH (4.5-7.5) Ur Specific [place] (1.000-1.030) Urine Protein (Negative) Urine Glucose (UA) (Negative) Urine Ketones (Negative) Urine Blood (Negative) Urine Nitrite (Negative) Urine Bilirubin (Negative) Urine Urobilinogen (Negative) Ur Leukocyte Esterase (Negative) Urine WBC (Auto) (0-5) /hpf Urine RBC (Auto) (0-4) /hpf U Hyaline Cast (Auto) (0-5) /lpf U Epithel Cells (Auto) (0-5) /lpf Urine Bacteria (Auto) (Negative) Ur Renal Epithelial Cell Salicylates (2.8-20) mg/dl Urine Opiates Screen (Neg) Ur Methadone, Qual (Neg) Acetaminophen (10-30) ug/ml Urine Barbiturates (Neg) Ur Phencyclidine (PCP) (Neg) U Amphetamin/Meth Scrn (Neg) MDMA (Ecstasy) Screen (Neg) U Benzodiazepines Scrn (Neg) Ur Cocaine Metabolite (Neg) U Marijuana (THC) Screen (Neg) Ethyl Alcohol mg/dL (0-3) mg/dl 09/11/19 09/11/19 09/11/19 Range/Units 22:08 22:08 22:08 WBC (4.8-10.8) K/uL RBC (4.2-5.4) M/uL Hgb (12.0-16.0) g/dL Hct (37-47) % MCV (80-100) fL MCH (25-34) pg MCHC (32-36) g/dL RDW Std Deviation (36.4-46.3) fL RDW Coeff of Carey (11.5-14.5) % Plt Count (130-400) K/uL MPV (7.4-10.4) fL Immature Gran % (Auto) % Neut % (Auto) % Lymph % (Auto) % Miner % (Auto) % Eos % (Auto) % Baso % (Auto) % Neut # (Auto) (1.4-6.5) K/uL Lymph # (Auto) (1.2-3.4) K/uL Miner # (Auto) (0.11-0.59) K/uL Eos # (Auto) (0-0.5) K/uL Baso # (Auto) (0-0.2) K/uL Immature Gran # (Auto) (0.00-0.02) K/uL PT (9.0-12.0) Seconds INR (0.9-1.1) Sodium (136-145) mmol/L Potassium (3.5-5.1) mmol/L Chloride (98-107) mmol/L Carbon Dioxide (21-32) mmol/L Anion Gap (3-11) BUN (7-18) mg/dl Creatinine (0.6-1.2) mg/dl Est Cr Clr Drug Dosing ml/min Est GFR ( Amer) Est GFR (Non-Af Amer) BUN/Creatinine Ratio (10-20) Glucose (70-99) mg/dl Osmolality (280-300) mOsm/kg Calcium (8.5-10.1) mg/dl Magnesium (1.8-2.4) mg/dl Total Bilirubin (0.2-1) mg/dl AST (15-37) U/L ALT (12-78) U/L Alkaline Phosphatase (45-117) U/L Total Creatine Kinase (26-192) U/L Troponin I (0-0.045) ng/ml Total Protein (6.4-8.2) gm/dl Albumin (3.4-5.0) gm/dl Globulin (2.5-4.0) gm/dl Albumin/Globulin Ratio (0.9-2) HCG, Qual Negative (Negative) Urine Color Urine Appearance (Clear) Urine pH (4.5-7.5) Ur Specific [place] (1.000-1.030) Urine Protein (Negative) Urine Glucose (UA) (Negative) Urine Ketones (Negative) Urine Blood (Negative) Urine Nitrite (Negative) Urine Bilirubin (Negative) Urine Urobilinogen (Negative) Ur Leukocyte Esterase (Negative) Urine WBC (Auto) (0-5) /hpf Urine RBC (Auto) (0-4) /hpf U Hyaline Cast (Auto) (0-5) /lpf U Epithel Cells (Auto) (0-5) /lpf Urine Bacteria (Auto) (Negative) Ur Renal Epithelial Cell Salicylates 2.9 (2.8-20) mg/dl Urine Opiates Screen (Neg) Ur Methadone, Qual (Neg) Acetaminophen < 2 L (10-30) ug/ml Urine Barbiturates (Neg) Ur Phencyclidine (PCP) (Neg) U Amphetamin/Meth Scrn (Neg) MDMA (Ecstasy) Screen (Neg) U Benzodiazepines Scrn (Neg) Ur Cocaine Metabolite (Neg) U Marijuana (THC) Screen (Neg) Ethyl Alcohol mg/dL < 3.0 (0-3) mg/dl 09/11/19 09/11/19 09/11/19 Range/Units 22:08 22:48 22:48 WBC (4.8-10.8) K/uL RBC (4.2-5.4) M/uL Hgb (12.0-16.0) g/dL Hct (37-47) % MCV (80-100) fL MCH (25-34) pg MCHC (32-36) g/dL RDW Std Deviation (36.4-46.3) fL RDW Coeff of Carey (11.5-14.5) % Plt Count (130-400) K/uL MPV (7.4-10.4) fL Immature Gran % (Auto) % Neut % (Auto) % Lymph % (Auto) % Miner % (Auto) % Eos % (Auto) % Baso % (Auto) % Neut # (Auto) (1.4-6.5) K/uL Lymph # (Auto) (1.2-3.4) K/uL Miner # (Auto) (0.11-0.59) K/uL Eos # (Auto) (0-0.5) K/uL Baso # (Auto) (0-0.2) K/uL Immature Gran # (Auto) (0.00-0.02) K/uL PT (9.0-12.0) Seconds INR (0.9-1.1) Sodium (136-145) mmol/L Potassium (3.5-5.1) mmol/L Chloride (98-107) mmol/L Carbon Dioxide (21-32) mmol/L Anion Gap (3-11) BUN (7-18) mg/dl Creatinine (0.6-1.2) mg/dl Est Cr Clr Drug Dosing ml/min Est GFR ( Amer) Est GFR (Non-Af Amer) BUN/Creatinine Ratio (10-20) Glucose (70-99) mg/dl Osmolality 289 (280-300) mOsm/kg Calcium (8.5-10.1) mg/dl Magnesium (1.8-2.4) mg/dl Total Bilirubin (0.2-1) mg/dl AST (15-37) U/L ALT (12-78) U/L Alkaline Phosphatase (45-117) U/L Total Creatine Kinase (26-192) U/L Troponin I (0-0.045) ng/ml Total Protein (6.4-8.2) gm/dl Albumin (3.4-5.0) gm/dl Globulin (2.5-4.0) gm/dl Albumin/Globulin Ratio (0.9-2) HCG, Qual (Negative) Urine Color Yellow Urine Appearance Cloudy A (Clear) Urine pH 8.0 H (4.5-7.5) Ur Specific [place] 1.015 (1.000-1.030) Urine Protein Negative (Negative) Urine Glucose (UA) Negative (Negative) Urine Ketones 1+ H (Negative) Urine Blood Negative (Negative) Urine Nitrite Negative (Negative) Urine Bilirubin Negative (Negative) Urine Urobilinogen Negative (Negative) Ur Leukocyte Esterase Negative (Negative) Urine WBC (Auto) 1-5 (0-5) /hpf Urine RBC (Auto) 0-4 (0-4) /hpf U Hyaline Cast (Auto) 1-5 (0-5) /lpf U Epithel Cells (Auto) >30 H (0-5) /lpf Urine Bacteria (Auto) 2+ H (Negative) Ur Renal Epithelial Cell Not Reportable Salicylates (2.8-20) mg/dl Urine Opiates Screen Neg (Neg) Ur Methadone, Qual Pos H (Neg) Acetaminophen (10-30) ug/ml Urine Barbiturates Neg (Neg) Ur Phencyclidine (PCP) Neg (Neg) U Amphetamin/Meth Scrn Neg (Neg) MDMA (Ecstasy) Screen Neg (Neg) U Benzodiazepines Scrn Neg (Neg) Ur Cocaine Metabolite Neg (Neg) U Marijuana (THC) Screen Pos H (Neg) Ethyl Alcohol mg/dL (0-3) mg/dl Administered Medications Propofol (Diprivan) 1,000 mg in 100 mls @ 8.508 mls/hr IV .[id number] MANUEL; Protocol Stop: 09/14/19 22:44 Last Admin: 09/11/19 22:43 Dose: 20 mcg/kg/min, 8.5 mls/hr Documented by: [id number] Cosigned by: [id number] Propofol (Diprivan Bolus From Bag) 15 mg IV Q5M PRN PRN Reason: Sedation Stop: 09/14/19 22:38 Last Admin: 09/12/19 00:40 Dose: 15 mg Documented by: [id number] Cosigned by: [id number] Admin: 09/12/19 00:35 Dose: 15 mg Documented by: [id number] Cosigned by: [id number] Discontinued Medications Etomidate (Amidate) 20 mg IV NOW ONE Stop: 09/11/19 22:42 Last Admin: 09/11/19 22:36 Dose: 20 mg Documented by: [id number] Sodium Chloride (Nss 1000ml) 1,000 mls @ 999 mls/hr IV .[id number] [facility] Stop: 09/11/19 23:15 Last Infusion: 09/11/19 23:39 Dose: 0 mls/hr Documented by: [id number] Admin: 09/11/19 22:21 Dose: 999 mls/hr Documented by: [id number] Lorazepam (Ativan) Confirm Administered Dose 2 mg .ROUTE .STK-MED ONE Stop: 09/11/19 22:02 Last Admin: 09/11/19 22:50 Dose: Not Given Documented by: [id number] Miscellaneous () Confirm Administered Dose 1 ea .ROUTE .STK-MED ONE Stop: 09/11/19 22:29 Last Admin: 09/11/19 22:50 Dose: 1 ea Documented by: [id number] Ondansetron HCl (Zofran) Confirm Administered Dose 4 mg .ROUTE .STK-MED ONE Stop: 09/11/19 22:00 Last Admin: 09/11/19 22:21 Dose: 4 mg Documented by: [id number] Propofol (Diprivan) Confirm Administered Dose 200 mg IV .STK-MED ONE Stop: 09/11/19 22:32 Last Admin: 09/11/19 22:50 Dose: Not Given Documented by: [id number] Propofol (Diprivan) Confirm Administered Dose 1,000 mg IV .STK-MED ONE Stop: 09/11/19 22:33 Last Admin: 09/11/19 22:56 Dose: Not Given Documented by: [id number] Rocuronium [place] (Zemuron) 75 mg IV ONCE STA Stop: 09/11/19 22:42 Last Admin: 09/11/19 22:36 Dose: 75 mg Documented by: [id number] Cosigned by: [id number] Discharge Plan Visit Data *Final* Discharge Date/Time: 09/12/19 00:10 Chief Complaint: Overdose (Intentional) Stated Complaint: MHID, ED Provider: Joes Chu Discharge Problem: AMS (altered mental status), Overdose, Acute respiratory failure with hypoxia, Nausea & vomiting Patient Disposition: Admitted As Inpatient Condition: Serious Discharge Instructions Interventions: ED Discharge Assessment Last Done: 09/12/19 00:10 Discharge Problem: AMS (altered mental status) Qualifiers: Altered mental status type: unspecified Qualified Code(s): R41.82 - Altered mental status, unspecified Overdose Qualifiers: Encounter type: initial encounter Injury intent: undetermined intent Qualified Code(s): T50.904A - Poisoning by unspecified drugs, medicaments and biological substances, undetermined, initial encounter Nausea & vomiting Qualifiers: Vomiting type: unspecified Vomiting Intractability: unspecified Qualified Code(s): R11.2 - Nausea with vomiting, unspecified
--- NOTE | 2019-09-12 01:25 | Critical Care Consultation ---
Date of Consultation September 12, 2019 Assessment & Plan (1) Admitted to intensive care unit: Reason Critically Ill: 28-year-old female presents to the emergency department with altered mental status secondary to drug overdose requiring intubation Neuro - AMSsecondary to intentional overdose with Trileptal and gabapentin with suspected suicide attempt, see HPI -CT head negative -Glucose normal, LFTs within normal limits, BUN within normal limits -Salicylates, acetaminophen, EtOH negative -UDS positive for methadone, marijuana -Unable to obtain patient's current med list -No history of seizure disorder -Sedation: Propofol -We will continue supportive care overnight with plan for extubation once mental status improves -We will need psych consult once wean from vent, continue suicidal precautions for now Bipolar disorderholding home bipolar medications for now, will resume when appropriate Cardiac - Currently hemodynamically stable in sinus rhythm on monitor Normal sinus rhythm on EKG, QTC unremarkable Continuous monitoring on telemetry Respiratory - Acute hypoxic respiratory failurepatient with likely aspiration pneumonitis following vomiting and altered mental status without protecting airway, required intubation -Mechanically ventilated 22/440/5/40 percent, will wean as appropriate, trend ABGs -History of asthma, nebs PRN -Continuous monitoring on pulse ox GI - N.p.o. IV famotidine RENAL/LYTES - Creatinine within normal limits, monitor routine BMPs and replete electrolytes as indicated Continue maintenance fluids - Strict I's and O's ENDO - No history diabetes or thyroid disease ICU hyperglycemic protocol HEME - H&H stable, monitor routine CBCs ID - UTI uncomplicatedpatient with bacteria +2 on UA, urine culture pending -Ceftriaxone MRSA swab negative LINES/IV ACCESS - Peripheral IVs, ETT DVT PROPHYLAXIS - SCDs, Lovenox I have personally spent 40 minutes of critical care time in the direct management of this patient. This is a life/limb threatening event. This includes time spent evaluating patient, direct bedside care, chart review, placing orders, interpretation of diagnostic studies, discussion with consultants, patient, and family members, as well as other required patient management activities. This time is exclusive of all separately billable procedures, and teaching time and separate from and in addition to any other critical care service time. Thank you for allowing us to participate in the care of this patient. Please refer to my attending physician's documentation for any further recommendations. (2) Long-term current use of methadone for opiate dependence: (3) AMS (altered mental status): (4) Overdose: (5) Acute respiratory failure with hypoxia: (6) Nausea & vomiting: Supervising Physician Co-Signing Physician Notes Patient seen and examined. EMR reviewed. Discussed with critical care ECHO and bedside critical care nurse and on multidisciplinary rounds. Agree with assessment and plan as noted by critical care ECHO. Briefly: 28-year-old female with extensive psychiatric history admitted with probable intentional overdose of Lamictal and possibly gabapentin.. Patient intubated in the emergency room due to decreased level of consciousness and intermittent agitation. This morning she is awake alert and following commands. Poison control was contacted and recommended supportive care. Her electrolytes are being repleted and her QT interval has been normal. She does have evidence of linear lacerations on both thighs likely from self mutilating behavior. She has extensive plaque psoriasis. Plan: 1. Pursue extubation and liberation from the mechanical ventilator as the patient is following commands and appears to be appropriate currently. Will discontinue propofol. She may require sedation with benzodiazepines if agitation continues to be an issue. Precedex could be an additional consideration. 2. Suicide attempt: Custody pending mental health evaluation. Behavioral health consultation. 3. Respiratory alkalosis: This should resolve when she is off the ventilator. Will follow clinically. 4. Hypokalemia: Electrolyte repletion in order. We will also replace calcium phosphorus and magnesium. Patient may require reinitiation of methadone as her mental status clears. The patient does well, she can likely transfer to the floor under the care of the hospitalist with a mental health sitter later today. History of Present Illness Attending Physician: Bruce Chou MD History of Present Illness Ms. Castellano is a 28-year-old female with history of drug abuse/heroin addiction, methadone dependence, bipolar disorder, asthma, who presented to the emergency department via EMS after the boyfriend found her less responsive and suspected overdose. On arrival to the emergency department the patient was minimally responsive and vomited and was thrashing in bed. Per EMS, patient suspected of taking approximately 60 300 mg Trileptal and some gabapentin. Patient is also on methadone. Per the patient's boyfriend, he stated that he had become conc erned over the past several days and she had seen a psychiatrist and was prescribed gabapentin and Trileptal and many of the pills were missing today. He also stated she had made recent comment that she could "commit suicide better than him". Patient was intubated in the emergency department for airway protection. Will continue supportive care and suicidal precautions. Will need psych consult once patient stabilized and wean from ventilator. Patient to remain in ICU for further management at this time. Allergies Allergy/AdvReac Type Severity Reaction Status Date / Time azithromycin [From Zithromax] Allergy Unknown Rash Verified 06/11/19 12:59 Penicillins Allergy Unknown RASH Verified 06/11/19 12:59 valproic acid Allergy Unknown Unknown Verified 06/11/19 12:59 amoxicillin [From Augmentin] Allergy Verified 06/11/19 12:59 clavulanic acid Allergy Verified 06/11/19 12:59 [From Augmentin] divalproex sodium Allergy Anaphylaxis Verified 06/11/19 13:08 [From Depakote] Home Medications Home Medications Medication Instructions Recorded Confirmed Type Unobtainable 09/11/19 09/11/19 History Patient History Medical History (Updated 09/12/19 @ 01:36 by Bruce Chou MD) Asthma (Chronic) Bipolar disorder (Chronic) Bleeding stomach ulcer Bronchitis (Resolved) Chlamydia contact (Resolved) Dehydration (Inactive) Elective Exposure to chlamydia (Resolved) Extremity edema (Inactive) Extremity pain (Inactive) Gastritis (Inactive) HTN (hypertension) (Inactive) Hx of varicella Insomnia (Chronic) LGSIL on Pap smear of cervix Long-term current use of methadone for opiate dependence Maternal kidney stone Miscarriage Opiate withdrawal (Resolved) Pain, dental (Inactive) Pneumonia (Resolved) Right foot sprain (Inactive) Vaginal delivery Vomiting (Inactive) Surgical History (Updated 06/11/19 @ 13:24 by Cassy Arellano) H/O LEEP History of tonsillectomy (Resolved) S/P ureteral stent placement placement and removal in 2019 Social History (Updated 06/11/19 @ 13:33 by Cassy Arellano) Preferred Language: Turkish Communication Ability: intubated Beliefs That Will Affect Care: None marital status: Single marital status details: ALEYDA Schultz (38) [phone] Current Living Situation: Spouse Current Living Situation Comment: lives with FOB, 1 dog, 1 cat, does not change litter current occupational status: unemployed Feels Safe at Home: Yes Smoking Status: Current every day smoker Tobacco Type: cigarettes ; Second Hand Exposure: Yes ; Hx Alcohol Use: No Hx Substance Use: No Review of Systems Review of Systems: Unobtainable due to cognitive status and Unobtainable due to endotracheal tube Physical Exam Constitutional: + mechanically ventilated Eyes: PERRL, conjunctivae normal, anicteric sclerae ENMT: external ear and nose normal, oropharynx normal Neck: trachea midline, no thyromegaly Respiratory: Bronchovascular rhonchi breath sounds bilateral, lungs clear to auscultation in upper lower and middle lobe. Symmetrical chest wall movement, mechanically ventilated. Cardiovascular: RRR, no murmur, no edema Heart Sounds: normal S1 and normal S2 Vessels: no JVD Extremities: normal capillary refill; no edema Gastrointestinal (Abdomen): normal bowel sounds, soft, nontender, no hepatosplenomegaly Skin: Patient with bilateral lower extremity MRSA sores, bilateral superficial cuts over each thigh Neurologic: Intubated and sedated Psychiatric: Unable to assess due to sedation Genitourinary: Indwelling Brooks catheter Results & Data Results & Data ([facility]) Vital Signs (Past 12 Hours) Vital Signs Temp Pulse Pulse Resp BP BP Pulse Ox 09/12/19 01:15 75 100 09/12/19 01:01 83 22 106/67 100 09/12/19 01:00 82 22 100 09/12/19 00:59 83 22 99 09/12/19 00:57 85 22 96 09/12/19 00:53 36.8 C 81 22 106/67 100 09/12/19 00:10 68 22 104/75 100 09/12/19 00:00 70 22 110/78 100 09/11/19 23:52 22 09/11/19 23:51 69 18 98 09/11/19 23:50 69 22 110/65 99 09/11/19 23:41 70 18 98 09/11/19 23:40 69 18 110/73 98 09/11/19 23:31 70 20 99 09/11/19 23:30 71 18 108/73 99 09/11/19 23:21 70 18 100 09/11/19 23:20 71 25 H 113/87 100 09/11/19 23:17 72 18 100 09/11/19 23:11 72 17 100 09/11/19 23:10 71 14 118/90 100 09/11/19 23:01 74 16 100 09/11/19 23:00 74 17 123/93 100 09/11/19 22:51 86 18 100 09/11/19 22:50 86 16 127/91 100 09/11/19 22:49 87 16 120/92 100 09/11/19 22:40 108 H 8 L 100 09/11/19 22:36 75 14 100 09/11/19 22:31 90 6 L 100 09/11/19 22:30 88 9 L 134/81 99 09/11/19 22:29 97 H 11 L 131/100 100 09/11/19 22:22 37.0 C 132 H 9 L 152/97 H 88 L 09/11/19 22:21 13 99 09/11/19 22:20 96 H 11 L 135/96 100 09/11/19 22:14 108 H 15 135/90 96 09/11/19 22:13 120 H 17 85 L 09/11/19 21:57 114 H 20 152/97 H 98 Coding Level of Care Code Critical Care 1st 30-74 mins Diagnoses Admitted to intensive care unit Z78.9 Long-term current use of methadone for opiate dependence F11.20 AMS (altered mental status) R41.82 Altered mental status type: unspecified Overdose T50.904A Encounter type: initial encounter Injury intent: undetermined intent Acute respiratory failure with hypoxia J96.01 Nausea & vomiting R11.2 Vomiting Intractability: unspecified Vomiting type: unspecified (1) Overdose Encounter type: initial encounter Injury intent: undetermined intent Qualified Code(s): T50.904A - Poisoning by unspecified drugs, medicaments and biological substances, undetermined, initial encounter (2) AMS (altered mental status) Altered mental status type: unspecified Qualified Code(s): R41.82 - Altered mental status, unspecified (3) Nausea & vomiting Vomiting Intractability: unspecified Vomiting type: unspecified Qualified Code(s): R11.2 - Nausea with vomiting, unspecified
[2019-09-12] MEDS: NSS + 20MEQ KCL 20 MEQ/1,000 ML BAG IV SCH ×2 (01:55→12:34)
[2019-09-12] MEDS ORDERED: ALBUT/IPRATROP 3MG/0.5MG NEB 3 ML VIAL NEB PRN (02:25)
[2019-09-12] MEDS ORDERED: cefTRIAXone SODIUM 2,000 MG in DEXTROSE 5% 50 ML IV SCH (03:00)
[2019-09-12] MEDS: ENOXAPARIN INJ 40 MG/0.4 ML SYR SQ SCH (03:19)
[2019-09-12] MEDS: propofoL 1,000 MG/100 ML VIAL IV SCH ×2 (03:20→07:28)
[2019-09-12 05:45] LABS: iSTAT Allen Test Pass; iSTAT Art Bld Gas pCO2 Correct 24 mmHg (35-46); iSTAT Art Bld Gas pH Corrected 7.511 (7.35-7.45); iSTAT Arterial Blood Gas HCO3 19 meg/L (19-24); iSTAT Arterial Blood Gas pCO2 24 mmHg (35-46); iSTAT Arterial Blood Gas pH 7.51 (7.35-7.45); iSTAT Arterial Blood Gas pO2 82 mmHg (80-95); iSTAT Arterial Blood Gas pO2 C 81; iSTAT Carbon Dioxide 20 mmol/L (24-31); iSTAT FiO2 30 %; iSTAT Hematocrit 41 % (37-47); iSTAT Hemoglobin 13.9 g/dl (12.0-16.0); iSTAT Potassium 3.1 mmol/L (3.3-5.0); iSTAT Site L Radial; iSTAT Sodium 141 mmol/L (135-144)
[2019-09-12 06:22] LABS: Basophils # (auto) 0.01 K/uL (0-0.2); Basophils % (auto) 0.1 %; Eosinophils # (auto) 0.04 K/uL (0-0.5); Eosinophils % (auto) 0.4 %; Hematocrit (blood only) 37.7 % (37-47); Immature Granulocytes # (auto) 0.02 K/uL (0.00-0.02); Immature Granulocytes % (auto) 0.2 %; Lymphocytes # (auto) 2.94 K/uL (1.2-3.4); Lymphocytes % (auto) 29.9 %; Mean Corpuscular Hemoglobin 29.6 pg (25-34); Mean Corpuscular Hgb Conc 34.5 g/dL (32-36); Mean Corpuscular Volume 85.9 fL (80-100); Mean Platelet Volume 9.7 fL (7.4-10.4); Monocytes # (auto) 0.75 K/uL (0.11-0.59); Monocytes % (auto) 7.6 %; Neutrophils # (auto) 6.07 K/uL (1.4-6.5); Neutrophils % (auto) 61.8 %; Platelet Count 271 K/uL (130-400); RDW Coefficient of Variation 13.6 % (11.5-14.5); RDW Standard Deviation 42.6 fL (36.4-46.3); Red Blood Count 4.39 M/uL (4.2-5.4); White Blood Count 9.83 K/uL (4.8-10.8)
[2019-09-12 06:30] LABS: Base Excess ABG -2.1 mEq/L (-9-1.8); HCO3 ABG 19 mmol/L (19-24); Oxygen Saturation ABG 96.9 % (90-95); PCO2 ABG 25 mmHg (35-46); PO2 ABG 80 mmHg (80-95)
[2019-09-12 06:31] LABS: Allen Test Pos (Pos)
[2019-09-12 06:35] LABS: pH ABG 7.51 (7.35-7.45)
[2019-09-12 06:38] LABS: Partial Thromboplastin Ratio 1.3; Partial Thromboplastin Time 35.1 Seconds (21.0-31.0)
[2019-09-12 06:50] LABS: Alanine Aminotransferase 18 U/L (12-78); Albumin Level 2.9 gm/dl (3.4-5.0); Aspartate Aminotransferase 17 U/L (15-37); BUN Creatinine Ratio 11.3 (10-20); Blood Urea Nitrogen 6 mg/dl (7-18); Calcium 8.1 mg/dl (8.5-10.1); Carbon Dioxide 21 mmol/L (21-32); Chloride 115 mmol/L (98-107); Creatinine Clr Calc Pharmacy 146.2 ml/min; Est GFR (African American) 146.8; Est GFR (Non-African American) 126.6; Glucose 83 mg/dl (70-99); Lipase 67 U/L (73-393); Magnesium 1.8 mg/dl (1.8-2.4); Potassium 3.2 mmol/L (3.5-5.1); Sodium 145 mmol/L (136-145)
[2019-09-12 06:57] LABS: Alkaline Phosphatase 55 U/L (45-117); Bilirubin Direct < 0.1 mg/dl (0-0.2); Bilirubin,Total 0.3 mg/dl (0.2-1); Phosphorus 2.2 mg/dl (2.5-4.9)
--- NOTE | 2019-09-12 07:22 | CT Scan Report ---
HEAD CT NONCONTRAST CT DOSE: 614.27 mGy.cm HISTORY: Altered mental status. Overdose. TECHNIQUE: Multiaxial CT images of the head were performed without the use of intravenous contrast. A utomated exposure control was utilized for this study. A dose lowering technique was utilized adheri ng to the principles of ALARA. Comparison: None. Findings: Retention cyst within the bilateral maxillary sinuses. The mastoid air cells are clear. The calvarium and skull base are intact. The ventricles and sulci are within normal limits. There is no mass, hematoma, midline shift, or acute infarct. Impression: No acute intracranial abnormality. ACT 112: Negative or not required by law. Electronically signed by: David Stephens M.D. 09/12/2019 7:21 AM
[2019-09-12] MEDS ORDERED: ICU ELECTROLYTE REPLACEMENT PROTOCOL PRN (07:38)
--- NOTE | 2019-09-12 07:38 | XRay Report ---
XR chest 1V portable HISTORY: intubation COMPARISON: Chest 05/19/2014. FINDINGS: Endotracheal tube terminates 2.2 cm from the navjot. No pneumothorax. No pleural effusions. The heart is normal in size. The lungs are clear. IMPRESSION: Endotracheal tube terminates 2.2 cm from the navjot. ACT 112: Negative or not required by law. Electronically signed by: David Stephens M.D. 09/12/2019 7:37 AM
--- NOTE | 2019-09-12 07:39 | XRay Report ---
XR chest 1V portable HISTORY: Respiratory failure. COMPARISON: Chest 09/11/2019. FINDINGS: Slightly rotated study. No pneumothorax. No pleural effusions. The lungs are clear. The hea rt is normal in size. Endotracheal tube appears to terminate approximately 2.9 cm from the navjot. IMPRESSION: Rotated study. Endotracheal tube appears to terminate approximately 2.9 cm from the navjot. ACT 112: Negative or not required by law. Electronically signed by: David Stephens M.D. 09/12/2019 7:38 AM
[2019-09-12] MEDS: POTASSIUM CHLORIDE / WTR 10 MEQ/100 ML PLCT IV SCH ×4 (07:56→11:41)
[2019-09-12] MEDS: METHADONE HCL 5 MG TAB PO SCH ×2 (10:30→20:35)
--- NOTE | 2019-09-12 11:28 | Electrocardiogram Report ---
Test Reason : Blood Pressure : / mmHG Vent. Rate : 118 BPM Atrial Rate : 118 BPM P-R Int : 162 ms QRS Dur : 082 ms QT Int : 334 ms P-R-T Axes : 072 028 060 degrees QTc Int : 468 ms Sinus tachycardia Possible Left atrial enlargement Borderline ECG When compared with ECG of 14-AUG-2010 20:14, Vent. rate has increased BY 47 BPM Confirmed by Timothy Noyola ([id number]) on 09/12/2019 11:28:08 AM Referred By: REFERRED SELF Confirmed By:George Noyola
[2019-09-12] MEDS: ALPRAZolam 0.5 MG TABLET PO PRN ×2 (11:36→11:40)
[2019-09-12 11:40] LABS: iSTAT Arterial Blood Gas HCO3 22 meg/L (19-24); iSTAT Arterial Blood Gas pCO2 45 mmHg (35-46); iSTAT Arterial Blood Gas pO2 69 mmHg (80-95); iSTAT Carbon Dioxide 24 mmol/L (24-31); iSTAT Sample Type Arterial
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
--- NOTE | 2019-09-12 12:54 | Electrocardiogram Report ---
Test Reason : Blood Pressure : / mmHG Vent. Rate : 066 BPM Atrial Rate : 066 BPM P-R Int : 146 ms QRS Dur : 072 ms QT Int : 442 ms P-R-T Axes : 135 137 144 degrees QTc Int : 463 ms Suspect arm lead reversal, interpretation assumes no reversal Unusual P axis, possible ectopic atrial rhythm vs limb lead reversal Lateral infarct , age undetermined vs limb lead reversal Abnormal ECG Confirmed by Timothy Noyola ([id number]) on 09/12/2019 12:53:40 PM Referred By: REFERRED SELF Confirmed By:George Noyola
[2019-09-12] MEDS ORDERED: LEVALBUTEROL TARTRATE 15 GM HFA.AER.AD INH SCH (13:00)
[2019-09-12] MEDS: TRIAMCINOLONE ACET 0.1% OINT 80 GM TUBE EXT SCH ×2 (13:57→20:35)
[2019-09-12] MEDS: POTASSIUM CHLORIDE 20 MEQ TABCR PO SCH ×2 (13:57→20:35)
[2019-09-12] MEDS ORDERED: TRIAMCINOLONE ACET 0.1% CR 80 GM TUBE EXT SCH (14:00)
[2019-09-12] MEDS ORDERED: TRIAMCINOLONE ACET 0.1% OINT 454 GM EXT SCH (14:00)
[2019-09-12] MEDS ORDERED: ACETAMINOPHEN 500 MG TAB PO PRN (14:31)
[2019-09-12] MEDS ORDERED: KETOROLAC 30 MG/ML VIAL IV PRN (14:31)
[2019-09-12] MEDS: LEVALBUTEROL TARTRATE 15 GM HFA.AER.AD INH SCH ×2 (14:44→19:38)
[2019-09-12] MEDS ORDERED: ONDANSETRON INJ 2 MG/ML 2 ML VIAL IV PRN (18:17)
[2019-09-12] MEDS ORDERED: ONDANSETRON INJ 2 MG/ML 2 ML VIAL ONE (18:20)
[2019-09-13 06:59] LABS: BUN Creatinine Ratio 6.5 (10-20); Calcium 7.9 mg/dl (8.5-10.1); Creatinine Clr Calc Pharmacy 140.9 ml/min; Est GFR (Non-African American) 125.1; Potassium 4.4 mmol/L (3.5-5.1)
[2019-09-13 07:10] LABS: Thyroid Stimulating Hormone 0.222 uIu/ml (0.300-4.500)
[2019-09-13] MEDS: LEVALBUTEROL TARTRATE 15 GM HFA.AER.AD INH SCH ×4 (07:34→15:06)
[2019-09-13 07:47] LABS: T4 Free Thyroxine 0.75 ng/dl (0.8-1.6)
[2019-09-13] MEDS: METHADONE HCL 5 MG TAB PO SCH (08:38)
[2019-09-13] MEDS: POTASSIUM CHLORIDE 20 MEQ TABCR PO SCH (08:38)
[2019-09-13] MEDS: ENOXAPARIN INJ 40 MG/0.4 ML SYR SQ SCH (08:39)
[2019-09-13] MEDS: TRIAMCINOLONE ACET 0.1% OINT 80 GM TUBE EXT SCH ×2 (08:39→14:05)
[2019-09-13] MEDS ORDERED: NALOXONE HCL 0.4 MG/1 ML VIAL/CARP IV PRN (11:03)
[2019-09-13] MEDS ORDERED: METHADONE ORAL SOLN 2 MG/ML PO ONE (12:00)
[2019-09-13] MEDS ORDERED: ONDANSETRON 8MG OD TAB PO PRN (12:32)
--- NOTE | 2019-09-13 16:13 | Discharge Summary ---
Date of Service date of admission - September 11, 2019 date of discharge - September 13, 2019 Admission HPI Per Admitting Provider The patient is a 28-year-old female with a past medical history including asthma, bipolar disorder, opiate dependence, and insomnia, who was brought to the emergency department due to concerns of her boyfriend regarding a possible intentional drug overdose. He reports that she had taken at least 30 days worth, up to 60 pills of Trileptal and gabapentin prescription, which she had just filled yesterday. She had also told her boyfriend that she could do a better job of killing herself and he did, as he is himself recovering from a suicide attempt. EMS reports that the patient was initially responsive upon arrival there to her home, but became minimally responsive, with vomiting and thrashing in the bed when arrived to the ED, and was then intubated for airway protection. The patient is also reportedly on an unknown dose of methadone, and is marijuana dependent. Principal Diagnosis medication overdose Discharge Exam Constitutional no acute distress and no altered mental status ENMT external ear and nose normal, oropharynx normal Respiratory normal respiratory effort, lungs clear to auscultation Cardiovascular Rate/Rhythm: regular rate and regular rhythm Heart Sounds: normal S1 and normal S2; no murmur Vessels: posterior tibial pulses present and dorsalis pedis pulses present; no JVD Extremities: no edema Gastrointestinal (Abdomen) normal bowel sounds, soft, nontender, no hepatosplenomegaly Skin + rash (Psoriatic plaques - extensive - many skin surfaces ) Neurologic moves all extremities; no focal motor deficits Psychiatric Orientation: alert and oriented x 3 Affect: + tearful affect Discharge Data Allergies Allergy/AdvReac Type Severity Reaction Status Date / Time azithromycin [From Zithromax] Allergy Unknown Rash Verified 06/11/19 12:59 Penicillins Allergy Unknown RASH Verified 06/11/19 12:59 valproic acid Allergy Unknown Unknown Verified 06/11/19 12:59 amoxicillin [From Augmentin] Allergy Verified 06/11/19 12:59 clavulanic acid Allergy Verified 06/11/19 12:59 [From Augmentin] divalproex sodium Allergy Anaphylaxis Verified 06/11/19 13:08 [From Depakote] Consultations Consult Viscosity Worker - Pedro Luis Yanes MD Consult Psychiatry Ordered Studies 09/11/19 23:56 CT head/brain wo con - no acute intracranial abnormality. Hospital Course (1) AMS (altered mental status): toxic encephalopathy 2nd to overdose of gabapentin and trileptal. in the face of her altered mental status she was intubated in the ED for airway protection. toxic encephalopathy was resolved by hospital day #2. (2) Overdose: by way of trileptal and gabapentin. psychiatry was consulted, and they felt that the overdose was unintentional instead of intent to self-harm. trileptal and gabapentin were held at admission and NOT resumed at discharge. Psychiatry did NOT feel patient was suicidal and that she did NOT require inpatient psychiatric treatment. (3) Acute respiratory failure with hypoxia: 2nd to altered mental status with concern for lack of airway protection and heightened aspiration risk. s/p intubation on hospital day #1. admitted to ICU, then extubated on the morning of hospital day #2. following extubation remained stable in room air. did have extensive wheezing on hospital day #2 but this improved with use of scheduled bronchodilators. she never required steroids. chest x-ray was negative for infiltrates. (4) Bipolar disorder: sees Dr Diez locally and was recently placed on combination of gabapentin & trileptal for her bipolar disorder. In light of the above events both medications were held and not resumed upon discharge. She was instructed to f/u with Dr Diez in the week following discharge for medication management. As noted above psychiatry felt that patient was NOT suicidal and that the overdose was accidental. Inpatient psychiatric admission and treatment were not recommended. (5) Nausea & vomiting: resolved this occurred in the face of her overdose (6) Long-term current use of methadone for opiate dependence: methadone maintenance - 53mg daily - managed by [facility] h/o heroin usage in past (7) Bleeding stomach ulcer: history of such (8) Psoriasis: TAC ointment - 0.1% - TID to affected areas (9) Asthma: albuterol 2 puffs q6h (10) Abnormal thyroid function test: TSH was mildly suppressed, and free T4 was LOW. Prolactin, FSH, LH, and cortisol were normal. Advised repeat TFTs within a few weeks of discharge to ensure euthyroid state. Of note - she is NOT on thyroid replacement. Total Time Total Time Spent Total Time Spent (In Minutes): 50 Total Time Includes: Examination of the Patient, Discharge Planning, Medication Reconciliation and Communication With Other Providers Discharge Plan Discharge Items Patient Disposition: Home - Self-Care Reason For Visit: Overdose Discharge Diagnosis: 1. Overdose of medication (gabapentin and trileptal) 2. abnormal thyroid levels - follow-up needed Condition on Discharge: Good Activity: Resume your previous activity Non-emergency contact: Primary Care Provider and Psychiatrist Call non-emergency contact if: you have any medication questions, your symptoms worsen and you have a fever Follow-up/Referrals: [facility] [Outside] (see Dr Diez within 3-5 days, if possible ) Reyna Arcos, DO [Primary Care Provider] - (see Dr Arcos within 3 days ) Diet: Regular Addtl Attending Provider Instructions: You were treated for an overdose of gabapentin and trileptal. This overdose was felt to be unintentional/accidental with no intent of self- harm. Unfortunately you had to be placed on the ventilator in the ICU because you were unresponsive from this medication and you were at risk of aspirating into the lungs. You were quickly extubated from the ventilator by the next morning. Psychiatry saw you for the overdose and recommends very close follow-up with Dr Diez with [facility]. Please see him THIS WEEK for follow-up. During routine testing we found abnormal thyroid levels. It is uncertain if you have an underactive thyroid gland. You will need repeat thyroid tests as an outpatient from your family doctor to recheck this. Continue to use the xopenex inhaler as needed for cough/wheezing. If possible please talk to your family doctor about quitting smoking. For your psoriasis may use the triamcinolone ointment up to three times daily for 7-10 days. Avoid your face and genital region. For your chronic methadone please return to [facility] for such. Lastly, I sent a prescription for anti-nausea medication for you to [facility]. If you ever feel suicidal or homicidal please call 911 or the National Suicide Prevention Lifeline at: . Psychiatry recommends NOT resuming your trileptal or gabapentin at this time. Simply make an appointment with Dr Diez for this week to discuss which medications he wishes for you to be on. Follow-up - see separate section. Return to [facility] if - * you have fever over 100.4 degrees * you have worsening shortness of breath * you have symptoms of silke from your bipolar disorder * you have suicidal or homicidal thoughts * any other concerns Pending Studies at Discharge: Yes Studies:: additional tests for thyroid Stand-Alone Forms: [facility], Smoking Cessation, Suicide Prevention Resources Medications and DC Order Prescriptions: New triamcinolone acetonide 0.1 % Ointment 1 applic EXT TID Qty: 1 RF: 0 levalbuterol tartrate [Xopenex HFA] 45 mcg/actuation Hfa Aerosol Inhaler 2 puff inhalation Q6H PRN (Reason: cough/wheeze) Qty: 1 RF: 0 methadone 10 mg tablet 53 mg PO DAILY Qty: 1 RF: 0 ondansetron 4 mg tablet,disintegrating 4 mg PO Q8H PRN (Reason: nausea and vomiting) Qty: 10 RF: 0 No Action Unobtainable RF: 0 Discharge Orders: Discharge Order (Routine); Ordered 09/13/19 Ordered By: Nemesio Alfaro Admission Data Admit Date/Time: 09/11/19 23:44 Attending Provider: Nemesio Alfaro Admit Provider: Bruce Chou Primary Care Provider: Reyna Arcos Other Providers: Bruce Chou ; Juan Manuel Yanes ; Cindy Gustafson Other Interventions: Discharge Summary Assessment (RN) Last Done: 09/13/19 16:09 DC Date/Time DO NOT enter until pt leaves facility: 09/13/19 16:38 Coding Level of Care Code D/C Day Management >30 mins Diagnoses AMS (altered mental status) R41.82 Altered mental status type: unspecified Overdose T50.904A Encounter type: initial encounter Injury intent: undetermined intent Acute respiratory failure with hypoxia J96.01 Bipolar disorder F31.9 Nausea & vomiting R11.2 Vomiting Intractability: unspecified Vomiting type: unspecified Long-term current use of methadone for opiate dependence F11.20 Bleeding stomach ulcer K25.4 Psoriasis L40.9 Asthma J45.909 Abnormal thyroid function test R94.6
[2019-09-13 17:11] LABS: Cortisol Random 29.35 mcg/dl; Follicle Stimulating Hormone 13.09 IU/L; Luteinizing Hormone 6.14 IU/L; Prolactin 9.2 ng/ml
[2019-09-14 15:49] LABS: Marijuana Quant, GCMS Urine 214 ng/mL (<5); Methadone, Ur Metabolite 2630 ng/mL (<100)
[2019-09-17 10:20] LABS: Synthetic Cannabinoid Qual Ur NEGATIVE (Negative)
== END 2019-09-13 16:38 | disposition home or self-care (01) | DRG 91 ==
LOC: ED 21:53 → SUATTDRO 23:44 → 1E 23:44 → 2N 09-12 12:40

== ENCOUNTER 2020-10-27 14:18 | Observation (INO) ==
[2020-10-27] MEDS ORDERED: SODIUM CHLORIDE 0.9% 1000ML 500 ML IV ONE (16:12)
[2020-10-27] MEDS ORDERED: SODIUM CHLORIDE 0.9% 1000ML 1,000 ML IV STA (16:12)
--- NOTE | 2020-10-27 16:22 | Emergency Department Note ---
Impression & Plan Hot flashes, Vomiting, Anxiety ED Provider Note INFORMANT: Patient ED PROVIDER(S): Junior Palacios MD CHIEF COMPLAINT: Methadone withdrawal PLAN: Disposition: Admitted Condition: Good Outpatient prescription management: none Referral: None MEDICAL DECISION MAKING: Presented because of complaints of possible methadone withdrawal. She noted feeling very anxious, restless, chills, cold sweats, nausea, vomiting. She had an IV established. She was given IV Zofran. She still having nausea. She was given additional Zofran. The patient had a mild leukocytosis on CBC. Her chemistry panel was unremarkable. The patient stated she could not provide a urine sample and therefore additional IV fluids were ordered. The patient was given IV Phenergan. She was still feeling nauseated. The patient's blood pressure was initially very high and then it became slightly hypotensive. A dditional fluids were continued. I did consult with [employer], Dr. Fernandez. The patient will be admitted to the OB service for further management. She did ask for the patient to get another dose of Phenergan and this was done. 12.5 mg IV. Triage Nursing notes reviewed and agree them. Vital Signs: reviewed and remarkable for hypertension initially and then hypotension Differential diagnosis: Withdrawal, Infection, dehydration, metabolic abnormality, hypo/hyperglycemia, electrolyte disturbance, anemia, hypoxia, cardiac sources, intracerebral event, toxicologic, neurologic, as well as other pathologies. Diagnostics interpreted by me: ECG: Lead ECG reveals normal sinus rhythm at [address] elevation or depression. No PACs or PVCs. QT interval normal at 408 ms. Cardiac Monitoring: Cardiac monitoring ordered by me: The patient was placed on continuous cardiac monitoring and observed. It revealed a normal sinus rhythm at 76 beats per minute without ectopy or evidence of dysrhythmia. Imaging studies: Chest x-ray. Findings: A chest x-ray was performed and revealed no pneumothorax, effusion, infiltrate, pulmonary edema, free air under the diaphragm, or wide mediastinum. Impression: No acute disease. HPI: The patient is a 30 year old female who presents to the Emergency Room with complaints of methadone withdrawal. This started 2 days ago and is persisting. Patient is 22 weak . The patient also notes the following associated symptoms, hot flashes, chills, restlessness, loose stool, vomiting, abdominal discomfort. The patient has found no relieving factors. Current pain is rated as 9/10. She thinks the methadone at the clinic is not working for her. She notes incontinence of stool of urine. Patient does note she is feeling movement. She has had no current vaginal bleeding. She was on bedrest secondary to having vaginal bleeding in previous weeks. Pt denies LOC, headache, fevers, diaphoresis, visual changes, neck pain, chest pain, breathing difficulties, back pain, melena, hematochezia, numbness, weakness, lymphadenopathy, rash, or other complaints. ROS: See above HPI for pertinent positives & negatives. A total of 10 systems reviewed and were otherwise negative. PAST MEDICAL HISTORY:See Below , opioid addiction PAST SURGICAL HISTORY:See Below, FAMILY HISTORY:See Below SOCIAL HISTORY:See Below, smoker HOME MEDICATIONS:See Below ALLERGIES:See Below VITALS:See Below PHYSICAL EXAMINATION: GENERAL: Awake, alert, anxious-appearing, in mild distress HENT: Normocephalic, atraumatic. Oropharynx unremarkable. EYES: Normal conjunctiva. Sclera non-icteric. NECK: Inspection normal. Non-tender. Supple. No nuchal rigidity. FROM. No masses. RESPIRATORY: Clear to auscultation. No wheezes. No rales. Normal respiratory effort. CARDIAC: tachycardic rate. Normal rhythm. No murmurs. No rubs. Extremities warm and well perfused. Pulses equal. No JVD. GI: Soft, gravid-distended. Mild diffuse tenderness to palpation. No rebound or guarding. No masses. RECTAL: Deferred. MUSCULOSKELETAL: Atraumatic. Chest examination reveals no tenderness. The back is symmetrical on inspection without obvious abnormality. There is no CVA tenderness to palpation. No joint edema. LOWER EXTREMITIES: Calves are equal size bilaterally and non-tender. No edema. No discoloration. NEURO: Normal sensorium. No sensory or motor deficits noted. SKIN: No rash or jaundice noted. Junior Palacios MD Past Med/Surg History Medical History (Updated 10/27/20 @ 23:08 by Jeet Stanford MD) Asthma Bipolar disorder Bleeding stomach ulcer Bronchitis Chlamydia contact Dehydration Elective Exposure to chlamydia Extremity edema Extremity pain Gastritis HTN (hypertension) Hx of varicella Insomnia LGSIL on Pap smear of cervix Long-term current use of methadone for opiate dependence Maternal kidney stone Miscarriage Opiate withdrawal Pain, dental Pneumonia Right foot sprain Vaginal delivery Vomiting Surgical History H/O LEEP History of tonsillectomy S/P ureteral stent placement placement and removal in 2019 Family History Other Cancer Diabetes Hypertension Myocardial infarction Stroke Social History Smoking Status: Current every day smoker Tobacco Type: Cigarettes Cigarettes Per Day: 5; Second Hand Exposure: Yes; Hx Alcohol Use: No Hx Substance Use: Yes Preferred Language: Chadian Communication Ability: Effective marital status: Single marital status details: ALEYDA Schultz (38) [phone] Current Living Situation: Spouse Current Living Situation Comment: lives with ALEYDA, 1 dog, 1 cat, does not change litter current occupational status: unemployed Feels Safe at Home: Yes Safety Concerns: Feels Safe At This Time Assistive Devices: None Allergies Allergies Allergy/AdvReac Type Severity Reaction Status Date / Time divalproex sodium Allergy Severe Anaphylaxis Verified 10/27/20 16:41 [From Depakote] amoxicillin [From Augmentin] Allergy Unknown HAPPENED Verified 10/27/20 16:41 A CHILD azithromycin [From Zithromax] Allergy Unknown Rash Verified 10/27/20 16:41 clavulanic acid Allergy Unknown HAPPENED Verified 10/27/20 16:41 [From Augmentin] A CHILD Penicillins Allergy Unknown RASH Verified 10/27/20 16:41 valproic acid Allergy Unknown Unknown Verified 10/27/20 16:41 Home Meds Home Medications Medication Instructions Recorded Confirmed methadone 10 mg/5 mL oral solution 121 mg PO QAM 06/28/20 10/27/20 Results & Data (ED) Vital Signs Vital Signs - 24 hr 10/27/20 14:29 10/27/20 17:06 10/27/20 17:53 Temperature 36.6 C Temperature Source Temporal Artery Scan Pulse Rate 99 H Pulse Rate [Finger] 95 H 91 H Pulse Rhythm [Finger] Pulse Strength [Finger] Respiratory Rate 22 18 18 Respiratory Effort / Characteristics Non-Labored Spontaneous Respiratory Depth Normal Blood Pressure 177/134 H Blood Pressure [Left Arm] 118/66 117/60 Blood Pressure Mean 148 Blood Pressure Mean [Left Arm] 83 79 Blood Pressure Position Sitting Blood Pressure Position [Left Arm] Pulse Oximetry 100 100 99 Oxygen Delivery Method Room Air Room Air Room Air Sepsis Recent Fever Within 48 Hours No Sepsis New/Unexplained Change in Mental Status N/A Sepsis Action Taken by Nursing No Action Required 10/27/20 19:08 10/27/20 19:25 10/27/20 22:08 Temperature 36.9 C Temperature Source Oral Pulse Rate Pulse Rate [Finger] 85 76 Pulse Rhythm [Finger] Regular Pulse Strength [Finger] Normal Respiratory Rate 24 14 18 Respiratory Effort / Characteristics Non-Labored Spontaneous Respiratory Depth Normal Blood Pressure Blood Pressure [Left Arm] 81/51 L 92/46 L 120/56 L Blood Pressure Mean Blood Pressure Mean [Left Arm] 61 61 77 Blood Pressure Position Blood Pressure Position [Left Arm] Lying Pulse Oximetry 98 96 Oxygen Delivery Method Room Air Room Air Sepsis Recent Fever Within 48 Hours Sepsis New/Unexplained Change in Mental Status Sepsis Action Taken by Nursing Laboratory Data Result diagrams: 10/27/20 17:01 10/27/20 17:01 Lab Results 10/27/20 10/27/20 10/27/20 Range/Units 17:01 17:01 17:01 WBC 14.85 H (4.8-10.8) K/uL RBC 4.40 (4.2-5.4) M/uL Hgb 13.4 (12.0-16.0) g/dL Hct 37.8 (37-47) % MCV 85.9 (80-100) fL MCH 30.5 (25-34) pg MCHC 35.4 (32-36) g/dL Plt Count 346 (130-400) K/uL Immature Gran % (Auto) 0.5 % Neut % (Auto) 88.2 % Lymph % (Auto) 8.1 % [place] % (Auto) 3.0 % Eos % (Auto) 0.1 % Baso % (Auto) 0.1 % Neut # (Auto) 13.10 H (1.4-6.5) K/uL Lymph # (Auto) 1.21 (1.2-3.4) K/uL [place] # (Auto) 0.45 (0.11-0.59) K/uL Eos # (Auto) 0.01 (0-0.5) K/uL Baso # (Auto) 0.01 (0-0.2) K/uL Immature Gran # (Auto) 0.07 H (0.00-0.02) K/uL Sodium 135 L (136-145) mmol/L Potassium 3.3 L (3.5-5.1) mmol/L Chloride 105 (98-107) mmol/L Carbon Dioxide 23 (21-32) mmol/L Anion Gap 7.0 (3-11) BUN 7 (7-18) mg/dl Creatinine 0.67 (0.6-1.2) mg/dl Est Cr Clr Drug Dosing 116.0 ml/min Est GFR ( Amer) 134.8 ml/min Est GFR (Non-Af Amer) 116.3 ml/min BUN/Creatinine Ratio 11.0 (10-20) Glucose 106 H (70-99) mg/dl Calcium 8.8 (8.5-10.1) mg/dl Magnesium 1.8 (1.8-2.4) mg/dl Total Bilirubin 0.4 (0.2-1) mg/dl AST 11 L (15-37) U/L ALT 15 (12-78) U/L Alkaline Phosphatase 69 (45-117) U/L Total Protein 7.6 (6.4-8.2) gm/dl Albumin 3.3 L (3.4-5.0) gm/dl Globulin 4.3 H (2.5-4.0) gm/dl Albumin/Globulin Ratio 0.8 L (0.9-2) TSH 0.400 (0.300-4.500) uIu/ml COVID-19 Eval Order Covid19 at [facility] SARS-CoV-2 (PCR) (Negative) 10/27/20 Range/Units 17:01 WBC (4.8-10.8) K/uL RBC (4.2-5.4) M/uL Hgb (12.0-16.0) g/dL Hct (37-47) % MCV (80-100) fL MCH (25-34) pg MCHC (32-36) g/dL Plt Count (130-400) K/uL Immature Gran % (Auto) % Neut % (Auto) % Lymph % (Auto) % [place] % (Auto) % Eos % (Auto) % Baso % (Auto) % Neut # (Auto) (1.4-6.5) K/uL Lymph # (Auto) (1.2-3.4) K/uL [place] # (Auto) (0.11-0.59) K/uL Eos # (Auto) (0-0.5) K/uL Baso # (Auto) (0-0.2) K/uL Immature Gran # (Auto) (0.00-0.02) K/uL Sodium (136-145) mmol/L Potassium (3.5-5.1) mmol/L Chloride (98-107) mmol/L Carbon Dioxide (21-32) mmol/L Anion Gap (3-11) BUN (7-18) mg/dl Creatinine (0.6-1.2) mg/dl Est Cr Clr Drug Dosing ml/min Est GFR ( Amer) ml/min Est GFR (Non-Af Amer) ml/min BUN/Creatinine Ratio (10-20) Glucose (70-99) mg/dl Calcium (8.5-10.1) mg/dl Magnesium (1.8-2.4) mg/dl Total Bilirubin (0.2-1) mg/dl AST (15-37) U/L ALT (12-78) U/L Alkaline Phosphatase (45-117) U/L Total Protein (6.4-8.2) gm/dl Albumin (3.4-5.0) gm/dl Globulin (2.5-4.0) gm/dl Albumin/Globulin Ratio (0.9-2) TSH (0.300-4.500) uIu/ml COVID-19 Eval Order SARS-CoV-2 (PCR) NEGATIVE (Negative) Administered Medications Sodium Chloride (Nss 1000ml) 1,000 mls @ 125 mls/hr IV .Q8H STA Stop: 10/28/20 00:11 Last Infusion: 10/27/20 19:09 Dose: 0 mls/hr Documented by: [id number] Admin: 10/27/20 17:14 Dose: 125 mls/hr Documented by: [id number] Dextrose/Lactated Ringer's (D5w And Lactated Ringers) 1,000 mls @ 125 mls/hr IV .Q8H MANUEL Stop: 11/26/20 19:59 Last Infusion: 10/27/20 23:06 Dose: 0 mls/hr Documented by: [id number] Admin: 10/27/20 23:06 Dose: 125 mls/hr Documented by: [id number] Discontinued Medications Al Hydrox/Mg Hydrox/Simethicone (Aluminum/Magnesium Susp 30 Ml Udc) 30 ml PO NOW STA Stop: 10/27/20 17:43 Last Admin: 10/27/20 17:51 Dose: 30 ml Documented by: [id number] Sodium Chloride (Nss 1000ml) 500 mls @ 999 mls/hr IV .Q31M ONE Stop: 10/27/20 16:42 Last Infusion: 10/27/20 17:14 Dose: 0 mls/hr Documented by: [id number] Admin: 10/27/20 16:59 Dose: 999 mls/hr Documented by: [id number] Promethazine HCl (Phenergan) 12.5 mg in 50.5 mls @ 202 mls/hr IV NOW STA Stop: 10/27/20 19:14 Last Admin: 10/27/20 19:07 Dose: 202 mls/hr Documented by: [id number] Sodium Chloride (Nss 1000ml) 1,000 mls @ 999 mls/hr IV .Q1H1M ONE Stop: 10/27/20 20:46 Last Infusion: 10/27/20 21:11 Dose: 0 mls/hr Documented by: [id number] Admin: 10/27/20 20:02 Dose: 999 mls/hr Documented by: [id number] Promethazine HCl (Phenergan) 12.5 mg in 50.5 mls @ 202 mls/hr IV NOW STA Stop: 10/27/20 20:10 Last Infusion: 10/27/20 21:12 Dose: 0 mls/hr Documented by: [id number] Admin: 10/27/20 20:05 Dose: 202 mls/hr Documented by: [id number] Ondansetron HCl (Ondansetron Inj 2 Mg/Ml 2 Ml Vial) 4 mg IV NOW STA Stop: 10/27/20 16:58 Last Admin: 10/27/20 17:03 Dose: 4 mg Documented by: [id number] Ondansetron HCl (Ondansetron Inj 2 Mg/Ml 2 Ml Vial) 4 mg IV NOW STA Stop: 10/27/20 17:43 Last Admin: 10/27/20 17:51 Dose: 4 mg Documented by: [id number] Imaging Data Radiologist's Impression: Chest X-Ray 10/27/20 16:11 XR chest 1V portable HISTORY: weakness COMPARISON: Chest 09/12/2019. FINDINGS: The lungs are clear. Cardiac silhouette is normal in size. No pleural effusions. No pneumothorax. IMPRESSION: No acute process. ACT 112: Negative or not required by law. Electronically signed by: David Stephens M.D. 10/27/2020 4:51 PM Discharge Plan Visit Data Chief Complaint: Illness Stated Complaint: OPIOD W/D, 23 WKS ED Provider: Junior Palacios Discharge Problem: Hot flashes, Vomiting, Anxiety Patient Disposition: Admitted As Inpatient Discharge Instructions Interventions: ED Discharge Assessment Last Done: 10/27/20 22:36
--- NOTE | 2020-10-27 16:52 | XRay Report ---
XR chest 1V portable HISTORY: weakness COMPARISON: Chest 09/12/2019. FINDINGS: The lungs are clear. Cardiac silhouette is normal in size. No pleural effusions. No pneumot horax. IMPRESSION: No acute process. ACT 112: Negative or not required by law. Electronically signed by: David Stephens M.D. 10/27/2020 4:51 PM
[2020-10-27] MEDS ORDERED: ONDANSETRON INJ 2 MG/ML 2 ML VIAL IV STA ×2 (16:57→17:42)
[2020-10-27 17:25] LABS: Albumin Level 3.3 gm/dl (3.4-5.0); Calcium 8.8 mg/dl (8.5-10.1); Est GFR (African American) 134.8 ml/min; Est GFR (Non-African American) 116.3 ml/min; Magnesium 1.8 mg/dl (1.8-2.4); Potassium 3.3 mmol/L (3.5-5.1)
[2020-10-27 17:31] LABS: Basophils # (auto) 0.01 K/uL (0-0.2); Basophils % (auto) 0.1 %; Eosinophils # (auto) 0.01 K/uL (0-0.5); Eosinophils % (auto) 0.1 %; Hematocrit (blood only) 37.8 % (37-47); Hemoglobin 13.4 g/dL (12.0-16.0); Immature Granulocytes # (auto) 0.07 K/uL (0.00-0.02); Immature Granulocytes % (auto) 0.5 %; Lymphocytes # (auto) 1.21 K/uL (1.2-3.4); Lymphocytes % (auto) 8.1 %; Mean Corpuscular Hemoglobin 30.5 pg (25-34); Mean Corpuscular Hgb Conc 35.4 g/dL (32-36); Mean Corpuscular Volume 85.9 fL (80-100); Monocytes # (auto) 0.45 K/uL (0.11-0.59); Neutrophils % (auto) 88.2 %; Platelet Count 346 K/uL (130-400); White Blood Count 14.85 K/uL (4.8-10.8)
[2020-10-27 17:34] LABS: Albumin Globulin Ratio 0.8 (0.9-2); Bilirubin,Total 0.4 mg/dl (0.2-1); Globulin 4.3 gm/dl (2.5-4.0); Thyroid Stimulating Hormone 0.4 uIu/ml (0.300-4.500); Total Protein 7.6 gm/dl (6.4-8.2)
[2020-10-27] MEDS ORDERED: ALUMINUM/MAGNESIUM SUSP 30 ML UDC PO STA (17:42)
[2020-10-27] MEDS ORDERED: PROMETHAZINE 12.5 MG/50.5 ML BAG IV STA ×2 (19:00→19:56)
[2020-10-27] MEDS ORDERED: SODIUM CHLORIDE 0.9% 1000ML 1,000 ML IV ONE (19:46)
[2020-10-27] MEDS ORDERED: ACETAMINOPHEN 325 MG TAB PO PRN (20:00)
[2020-10-27] MEDS ORDERED: ONDANSETRON 4 MG OD TAB PO PRN (20:00)
[2020-10-27] MEDS ORDERED: D5W AND LACTATED RINGERS 1,000 ML IV SCH (20:00)
[2020-10-27] MEDS ORDERED: PROMETHAZINE HCL 25 MG in SODIUM CHLORIDE 0.9% 50 ML IV PRN (20:00)
[2020-10-27] MEDS ORDERED: METOCLOPRAMIDE HCL INJ 5 MG/ML 2 ML VIAL IV PRN (20:03)
[2020-10-27] MEDS ORDERED: CALCIUM CARBONATE 500 MG CHEWABLE TAB PO PRN (21:13)
[2020-10-27 22:12] LABS: Appearance Urine Clear (Clear); Bacteria Urine Automated 1+ (Negative); Bilirubin Urine Negative (Negative); Blood Urine Negative (Negative); Color Urine Dark Yellow; Epithelial Cell Urine Auto >30 /lpf (0-5); Glucose Urine UA Negative (Negative); Ketones Urine 4+ (Negative); Leukocyte Esterase Urine Negative (Negative); Nitrite Urine Negative (Negative); Protein Urine 1+ (Negative); Specific Gravity Urine 1.027 (1.000-1.030); Urobilinogen Urine Negative (Negative); pH Urine 6.5 (4.5-7.5)
[2020-10-27 22:13] LABS: Amphetamines+Metham, Urine Neg (Neg); Barbiturates, Urine Neg (Neg); Benzodiazepine, Urine Neg (Neg); Cocaine, Urine Neg (Neg); MDMA (Ecstacy), Urine Neg (Neg); Methadone, Urine Pos (Neg); Opiate, Urine Neg (Neg); Phencyclidine, Urine Neg (Neg)
--- NOTE | 2020-10-27 22:57 | History & Physical Report ---
Date of Service October 27, 2020 Assessment & Plan (1) Vomiting: (2) Anxiety: (3) Nausea & vomiting: Plan: 30 yo at 22.5 wks with N&V and methadone withdrawal symptoms per her due to not getting her dose from clinic ( nurses are stealing her dose), no OB sy mptoms VSS Afebrile US WNL FHR reassuring, no ctxs Plan to observe, hydrate, replace electrolytes, Antiemetics, continue with her current Methadone dose Consulted pharmacy and psychiatry for further recommendations Continue to monitor closely (4) : (5) Methadone maintenance treatment affecting : Admission and Anticipated Discharge Date Admission Date: October 27, 2020 History of Present Illness Chief Complaint: Nausea vomiting and not feeling well from Methadone withdrawal. Primary Care Provider: Reyna Arcos DO Patient is a 30 yo at 22.5 wks who presented to ER with N&V, general not feeling well and having withdrawal symptoms. She has been on Methadone due to h/o heroin use, current use of Marijuana. She states she was clean and was weaning off from Methadone and then she got and they recommended Methadone. She has been going to clinic and her dose was increased to 121 mg/ daily. She believes they are not giving her the right dose and they have been stealing it and she has been having withdrawal symptoms. She also has h/o HEG and has been on Zofran which has not helped her for the last 2 days. She denies abdominal pain/ cramping/ ctxs/ LOF/VB She reports good FM's Her has been complicated by 1) Tobacco use 2) on Methadone, 121 mg 3) BPD 4) Depression, on Effexor She thinks she vomited her morning dose this morning and she is having withdrawal She states if we are not going to give her dose in am she will leave now. I recommended IVF hydration, correction of her electrolytes, treatment for N&V and call Psyhiatry to help/ aid for Methadone maintanance/ withdrawal She agreed to stay. I called [facility] and they will come and see her. Pharmacy contacted methadone clinic and confirmed the dose as 121 mg, last dose was given on 9/ am. Allergies Allergy/AdvReac Type Severity Reaction Status Date / Time divalproex sodium Allergy Severe Anaphylaxis Verified 10/27/20 16:41 [From Depakote] amoxicillin [From Augmentin] Allergy Unknown HAPPENED Verified 10/27/20 16:41 A CHILD azithromycin [From Zithromax] Allergy Unknown Rash Verified 10/27/20 16:41 clavulanic acid Allergy Unknown HAPPENED Verified 10/27/20 16:41 [From Augmentin] A CHILD Penicillins Allergy Unknown RASH Verified 10/27/20 16:41 valproic acid Allergy Unknown Unknown Verified 10/27/20 16:41 Home Medications Medication Instructions Recorded Confirmed Type methadone 10 mg/5 mL oral solution 121 mg PO QAM 06/28/20 10/27/20 History Patient History Medical History (Updated 10/27/20 @ 23:08 by Jeet Stanford MD) Asthma Bipolar disorder Bleeding stomach ulcer Bronchitis Chlamydia contact Dehydration Elective Exposure to chlamydia Extremity edema Extremity pain Gastritis HTN (hypertension) Hx of varicella Insomnia LGSIL on Pap smear of cervix Long-term current use of methadone for opiate dependence Maternal kidney stone Miscarriage Opiate withdrawal Pain, dental Pneumonia Right foot sprain Vaginal delivery Vomiting Surgical History H/O LEEP History of tonsillectomy S/P ureteral stent placement placement and removal in 2019 Family History Other Cancer Diabetes Hypertension Myocardial infarction Stroke Social History Smoking Status: Current every day smoker Tobacco Type: Cigarettes Cigarettes Per Day: 5; Second Hand Exposure: Yes; Hx Alcohol Use: No Hx Substance Use: Yes Preferred Language: Ghanaian Communication Ability: Effective marital status: Single marital status details: ALEYDA Schultz (38) [phone] Current Living Situation: Spouse Current Living Situation Comment: lives with ALEYDA, 1 dog, 1 cat, does not change litter current occupational status: unemployed Feels Safe at Home: Yes Safety Concerns: Feels Safe At This Time Assistive Devices: None OB History 2 FT 2 SAB Review of Systems as per Subjective / HPI, + body aches, + fatigue, + malaise, + weakness, + anorexia and + insomnia + nausea and + vomiting Physical Exam Constitutional: well developed and well nourished Gastrointestinal (Abdomen): Inspection/Auscultation: abdomen normal to inspection no ctxs on toco FHR 147 bpm Psychiatric: Affect: + anxious affect and + angry affect Genitourinary: Deferred Results & Data ([facility]) Vital Signs (Past 12 Hours) Vital Signs Temp Pulse Pulse Resp BP BP Pulse Ox 10/27/20 22:17 36.9 C 18 10/27/20 22:08 36.9 C 76 18 120/56 L 10/27/20 19:25 14 92/46 L 96 10/27/20 19:08 85 24 81/51 L 98 10/27/20 17:53 91 H 18 117/60 99 10/27/20 17:06 95 H 18 118/66 100 10/27/20 14:29 36.6 C 99 H 22 177/134 H 100 Laboratory Results Lab Results 10/27/20 10/27/20 10/27/20 Range/Units 17:01 17:01 17:01 WBC 14.85 H (4.8-10.8) K/uL RBC 4.40 (4.2-5.4) M/uL Hgb 13.4 (12.0-16.0) g/dL Hct 37.8 (37-47) % MCV 85.9 (80-100) fL MCH 30.5 (25-34) pg MCHC 35.4 (32-36) g/dL Plt Count 346 (130-400) K/uL Immature Gran % (Auto) 0.5 % Neut % (Auto) 88.2 % Lymph % (Auto) 8.1 % [place] % (Auto) 3.0 % Eos % (Auto) 0.1 % Baso % (Auto) 0.1 % Neut # (Auto) 13.10 H (1.4-6.5) K/uL Lymph # (Auto) 1.21 (1.2-3.4) K/uL [place] # (Auto) 0.45 (0.11-0.59) K/uL Eos # (Auto) 0.01 (0-0.5) K/uL Baso # (Auto) 0.01 (0-0.2) K/uL Immature Gran # (Auto) 0.07 H (0.00-0.02) K/uL Sodium 135 L (136-145) mmol/L Potassium 3.3 L (3.5-5.1) mmol/L Chloride 105 (98-107) mmol/L Carbon Dioxide 23 (21-32) mmol/L Anion Gap 7.0 (3-11) BUN 7 (7-18) mg/dl Creatinine 0.67 (0.6-1.2) mg/dl Est Cr Clr Drug Dosing 116.0 ml/min Est GFR ( Amer) 134.8 ml/min Est GFR (Non-Af Amer) 116.3 ml/min BUN/Creatinine Ratio 11.0 (10-20) Glucose 106 H (70-99) mg/dl Calcium 8.8 (8.5-10.1) mg/dl Magnesium 1.8 (1.8-2.4) mg/dl Total Bilirubin 0.4 (0.2-1) mg/dl AST 11 L (15-37) U/L ALT 15 (12-78) U/L Alkaline Phosphatase 69 (45-117) U/L Total Protein 7.6 (6.4-8.2) gm/dl Albumin 3.3 L (3.4-5.0) gm/dl Globulin 4.3 H (2.5-4.0) gm/dl Albumin/Globulin Ratio 0.8 L (0.9-2) TSH 0.400 (0.300-4.500) uIu/ml Urine Color Urine Appearance (Clear) Urine pH (4.5-7.5) Ur Specific [place] (1.000-1.030) Urine Protein (Negative) Urine Glucose (UA) (Negative) Urine Ketones (Negative) Urine Blood (Negative) Urine Nitrite (Negative) Urine Bilirubin (Negative) Urine Urobilinogen (Negative) Ur Leukocyte Esterase (Negative) Urine WBC (Auto) (0-5) /hpf Urine RBC (Auto) (0-4) /hpf U Hyaline Cast (Auto) (0-5) /lpf U Epithel Cells (Auto) (0-5) /lpf Urine Bacteria (Auto) (Negative) Ur Renal Epithelial Cell Granular Casts (0) /lpf Urine Opiates Screen (Neg) Ur Methadone, Qual (Neg) Urine Barbiturates (Neg) Ur Phencyclidine (PCP) (Neg) U Amphetamin/Meth Scrn (Neg) MDMA (Ecstasy) Screen (Neg) U Benzodiazepines Scrn (Neg) Ur Cocaine Metabolite (Neg) U Marijuana (THC) Screen (Neg) COVID-19 Eval Order Covid19 at [facility] SARS-CoV-2 (PCR) (Negative) 10/27/20 10/27/20 10/27/20 Range/Units 17:01 Unknown Unknown WBC (4.8-10.8) K/uL RBC (4.2-5.4) M/uL Hgb (12.0-16.0) g/dL Hct (37-47) % MCV (80-100) fL MCH (25-34) pg MCHC (32-36) g/dL Plt Count (130-400) K/uL Immature Gran % (Auto) % Neut % (Auto) % Lymph % (Auto) % [place] % (Auto) % Eos % (Auto) % Baso % (Auto) % Neut # (Auto) (1.4-6.5) K/uL Lymph # (Auto) (1.2-3.4) K/uL [place] # (Auto) (0.11-0.59) K/uL Eos # (Auto) (0-0.5) K/uL Baso # (Auto) (0-0.2) K/uL Immature Gran # (Auto) (0.00-0.02) K/uL Sodium (136-145) mmol/L Potassium (3.5-5.1) mmol/L Chloride (98-107) mmol/L Carbon Dioxide (21-32) mmol/L Anion Gap (3-11) BUN (7-18) mg/dl Creatinine (0.6-1.2) mg/dl Est Cr Clr Drug Dosing ml/min Est GFR ( Amer) ml/min Est GFR (Non-Af Amer) ml/min BUN/Creatinine Ratio (10-20) Glucose (70-99) mg/dl Calcium (8.5-10.1) mg/dl Magnesium (1.8-2.4) mg/dl Total Bilirubin (0.2-1) mg/dl AST (15-37) U/L ALT (12-78) U/L Alkaline Phosphatase (45-117) U/L Total Protein (6.4-8.2) gm/dl Albumin (3.4-5.0) gm/dl Globulin (2.5-4.0) gm/dl Albumin/Globulin Ratio (0.9-2) TSH (0.300-4.500) uIu/ml Urine Color Dark Yellow Urine Appearance Clear (Clear) Urine pH 6.5 (4.5-7.5) Ur Specific [place] 1.027 (1.000-1.030) Urine Protein 1+ H (Negative) Urine Glucose (UA) Negative (Negative) Urine Ketones 4+ H (Negative) Urine Blood Negative (Negative) Urine Nitrite Negative (Negative) Urine Bilirubin Negative (Negative) Urine Urobilinogen Negative (Negative) Ur Leukocyte Esterase Negative (Negative) Urine WBC (Auto) 1-5 (0-5) /hpf Urine RBC (Auto) 5-10 H (0-4) /hpf U Hyaline Cast (Auto) 10-30 H (0-5) /lpf U Epithel Cells (Auto) >30 H (0-5) /lpf Urine Bacteria (Auto) 1+ H (Negative) Ur Renal Epithelial Cell Not Reportable Granular Casts 1-5 H (0) /lpf Urine Opiates Screen Neg (Neg) Ur Methadone, Qual Pos H (Neg) Urine Barbiturates Neg (Neg) Ur Phencyclidine (PCP) Neg (Neg) U Amphetamin/Meth Scrn Neg (Neg) MDMA (Ecstasy) Screen Neg (Neg) U Benzodiazepines Scrn Neg (Neg) Ur Cocaine Metabolite Neg (Neg) U Marijuana (THC) Screen Pos H (Neg) COVID-19 Eval Order SARS-CoV-2 (PCR) NEGATIVE (Negative) (1) Nausea & vomiting Vomiting Intractability: unspecified Vomiting type: unspecified Qualified Code(s): R11.2 - Nausea with vomiting, unspecified
[2020-10-27] MEDS ORDERED: D5W AND 1/2NSS + 20MEQ KCL 20 MEQ/1,000 ML BAG IV SCH (23:45)
[2020-10-27] MEDS ORDERED: MIRTAZAPINE TAB 15 MG TAB PO SCH (23:45)
[2020-10-28 05:23] VITALS: TEMP 98.6; O2SAT 96
[2020-10-28] MEDS ORDERED: PATIENT'S OWN CONTROLLED MED 1 PO SCH ×4 (06:00→09:00)
[2020-10-28] MEDS ORDERED: METHADONE ORAL SOLN 2 MG/ML PO SCH ×3 (06:00→09:00)
[2020-10-28] MEDS ORDERED: PATIENT'S OWN CONTROLLED MED 1 SCH (06:30)
[2020-10-28 06:43] LABS: Basophils # (auto) 0.01 K/uL (0-0.2); Basophils % (auto) 0.1 %; Hematocrit (blood only) 29.3 % (37-47); Hemoglobin 10.1 g/dL (12.0-16.0); Immature Granulocytes # (auto) 0.03 K/uL (0.00-0.02); Immature Granulocytes % (auto) 0.3 %; Lymphocytes % (auto) 24.1 %; Mean Corpuscular Hemoglobin 29.9 pg (25-34); Mean Corpuscular Hgb Conc 34.5 g/dL (32-36); Mean Corpuscular Volume 86.7 fL (80-100); Mean Platelet Volume 9.8 fL (7.4-10.4); Neutrophils # (auto) 6.93 K/uL (1.4-6.5); Neutrophils % (auto) 69.5 %; Platelet Count 252 K/uL (130-400); RDW Coefficient of Variation 13.3 % (11.5-14.5); RDW Standard Deviation 42.1 fL (36.4-46.3); Red Blood Count 3.38 M/uL (4.2-5.4); White Blood Count 9.97 K/uL (4.8-10.8)
[2020-10-28 07:11] LABS: Alanine Aminotransferase 11 U/L (12-78); Albumin Level 2.4 gm/dl (3.4-5.0); Aspartate Aminotransferase 9 U/L (15-37); Blood Urea Nitrogen 5 mg/dl (7-18); Calcium 7.7 mg/dl (8.5-10.1); Carbon Dioxide 22 mmol/L (21-32); Chloride 111 mmol/L (98-107); Creatinine Clr Calc Pharmacy 157.8 ml/min; Est GFR (African American) > 150.0 ml/min; Est GFR (Non-African American) 129.8 ml/min; Glucose Fasting 100 mg/dl (70-99); Potassium 3.1 mmol/L (3.5-5.1); Sodium 139 mmol/L (136-145)
[2020-10-28 07:24] LABS: Albumin Globulin Ratio 0.8 (0.9-2); Alkaline Phosphatase 49 U/L (45-117); Bilirubin,Total 0.2 mg/dl (0.2-1); Globulin 3.1 gm/dl (2.5-4.0); Total Protein 5.5 gm/dl (6.4-8.2)
--- NOTE | 2020-10-28 08:12 | Ultrasound Report ---
US OB limited CLINICAL HISTORY: Nausea. COMPARISON STUDY: OB ultrasound June 28, 2020. TECHNIQUE: Transabdominal ultrasound of the pelvis was performed. FINDINGS: Please note that a dedicated anatomical survey was not performed. Presentation is cep halic. Single viable intrauterine gestation is noted with heart ranging from 147 to 180 bpm. Ce rvix is suboptimally assessed on this exam but is closed. The amniotic fluid index is 11.51 cm. Femur length measures 3.79 cm which corresponds to an estimated gestational age of 22 weeks and 1 day. Cait centa is located posteriorly. No placental abnormality is identified. IMPRESSION: 1. Single viable intrauterine gestation. 2. Cephalic presentation. 3. Amniotic fluid index of 11.51 cm. 4. heart rate ranged from 147 to 180 bpm which is slightly elevated. ACT 112: Negative or not required by law. Electronically signed by: Omar Salomon M.D. 10/28/2020 8:10 AM
--- NOTE | 2020-10-28 08:59 | Obstetrical Progress Note ---
Date of Service October 28, 2020 Assessment & Plan Admission and Anticipated Discharge Date Admission Date: October 27, 2020 Subjective Patient is reevaluated. Feels much better, wants to go home. No cramping/ctxs/ LOF/VB +FM's No N&V anymore She ate her breakfast. Desires Rx for nausea. Psych nurse saw and recommended clonidine if needed, patient declines. All questions were answered. Results & Data ([facility]) Vital Signs (Past 12 Hours) Vital Signs Temp Pulse Pulse Resp BP BP Pulse Ox 10/28/20 04:22 74 101/54 L 10/28/20 04:20 37 C 74 16 101/54 L 96 10/28/20 01:50 36.7 C 69 16 98/59 L 94 10/28/20 01:46 69 98/49 L 10/27/20 22:17 36.9 C 76 18 120/56 L 10/27/20 22:08 36.9 C 76 18 120/56 L
[2020-10-28] MEDS ORDERED: PRENATAL VITAMIN 1 TAB PO SCH (09:00)
[2020-10-28 09:17] VITALS: BP 101/54; PULSE 74
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
--- NOTE | 2020-10-29 05:47 | Electrocardiogram Report ---
Test Reason : Blood Pressure : / mmHG Vent. Rate : 083 BPM Atrial Rate : 083 BPM P-R Int : 146 ms QRS Dur : 076 ms QT Int : 408 ms P-R-T Axes : 051 031 044 degrees QTc Int : 479 ms Normal sinus rhythm Normal ECG When compared with ECG of 12-SEP-2019 08:34, Limb lead reversal is no longer present Confirmed by Aime Ruff ([id number]) on 10/29/2020 5:47:13 AM Referred By: REFERRED SELF Confirmed By:Aime Ruff
[2020-10-30 11:15] LABS: Marijuana Quant, GCMS Urine 2151 ng/mL (<5); Methadone, Ur Metabolite >10000 ng/mL (<100)
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
== END 2020-10-28 09:40 | disposition home or self-care (01) ==
LOC: ED 14:18 → 4S2 14:18
DX: I10 Essential (primary) hypertension; O99.332 Smoking (tobacco) complicating pregnancy, second trimester; Z79.899 Other long term (current) drug therapy; F11.23 Opioid dependence with withdrawal; Z88.0 Allergy status to penicillin; O36.0920 Maternal care for other rhesus isoimmunization, second trimester, not applicable or unspecified; F17.210 Nicotine dependence, cigarettes, uncomplicated; Z88.1 Allergy status to other antibiotic agents; R11.2 Nausea with vomiting, unspecified; Z3A.22 22 weeks gestation of pregnancy; T40.2X5A Adverse effect of other opioids, initial encounter; Z88.8 Allergy status to other drugs, medicaments and biological substances; O26.892 Other specified pregnancy related conditions, second trimester

== ENCOUNTER 2021-02-24 15:01 | Inpatient (IN) ==
[2021-02-24] MEDS ORDERED: LACTATED RINGER'S 1,000 ML IV PRN (16:04)
[2021-02-24] MEDS ORDERED: OXYTOCIN 30 UNITS/500 ML BAG IV PRN (16:04)
[2021-02-24 16:40] LABS: Amphetamines+Metham, Urine Neg (Neg); Barbiturates, Urine Neg (Neg); Benzodiazepine, Urine Neg (Neg); Cocaine, Urine Neg (Neg); MDMA (Ecstacy), Urine Neg (Neg); Methadone, Urine Pos (Neg); Opiate, Urine Neg (Neg); Phencyclidine, Urine Neg (Neg)
[2021-02-24 16:47] LABS: Hematocrit (blood only) 35.2 % (37-47); Hemoglobin 11.9 g/dL (12.0-16.0); Mean Corpuscular Hemoglobin 29.8 pg (25-34); Mean Corpuscular Hgb Conc 33.8 g/dL (32-36); Mean Platelet Volume 10.9 fL (7.4-10.4); Platelet Count 296 K/uL (130-400); RDW Coefficient of Variation 13.6 % (11.5-14.5); RDW Standard Deviation 44.4 fL (36.4-46.3); White Blood Count 11.91 K/uL (4.8-10.8)
[2021-02-24] MEDS ORDERED: ONDANSETRON 4 MG OD TAB PO PRN (17:34)
--- NOTE | 2021-02-24 17:34 | History & Physical Report ---
Date of Service February 24, 2021 Assessment & Plan (1) Methadone maintenance treatment affecting : (2) Long-term current use of methadone for opiate dependence: (3) IUGR (intrauterine growth restriction): Plan: 30-year-old -0-0-2 at 39 weeks and 6 days of gestation presenting today for induction of labor at term due to IUGR, long-term current use of methadone for opiate dependence, history of drug use, hepatitis C, Vital signs stable afebrile, GBS negative, heart rate reassuring, Cervix favorable, Plan to admit, monitor, labs, start induction of labor with oxytocin, All questions were answered. Admission and Anticipated Discharge Date Admission Date: February 24, 2021 History of Present Illness Primary Care Provider: Reyna Arcos DO Patient is a 30-year-old -0-0-2 at 39 weeks and 6 days of gestation who was sent from office for induction of labor at term for IUGR and BPP of 6 out of 8. Her has been complicated by, 1 Rh-, 2 tobacco use, 3. 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 Methadone use, 154 mg daily, 5. History of marijuana use, has medical card, 6. History of depression, bipolar disorder, on medical marijuana and Effexor, 7. Hepatitis C carrier, has not been elevated by hepatology, Patient denies contractions, leakage of fluid, vaginal bleeding and she reports good movements., Her NST has been reactive here since she came and no signs of labor. Allergies Allergy/AdvReac Type Severity Reaction Status Date / Time divalproex sodium Allergy Severe Anaphylaxis Verified 10/27/20 16:41 [From Depakote] amoxicillin [From Augmentin] Allergy Unknown HAPPENED Verified 10/27/20 16:41 A CHILD azithromycin [From Zithromax] Allergy Unknown Rash Verified 10/27/20 16:41 clavulanic acid Allergy Unknown HAPPENED Verified 10/27/20 16:41 [From Augmentin] A CHILD Penicillins Allergy Unknown RASH Verified 10/27/20 16:41 valproic acid Allergy Unknown Unknown Verified 10/27/20 16:41 Home Medications Medication Instructions Recorded Confirmed Type methadone 10 mg/5 mL oral solution 121 mg PO QAM 06/28/20 10/27/20 History metoclopramide HCl 10 mg tablet 10 mg PO Q6H PRN #30 tab 10/28/20 Rx (Reglan) vits no.124-ferrous fum 1 tab PO QAM #90 tab 10/28/20 Rx 27 mg iron-folic acid 800 mcg tablet ( Vitamin) promethazine 12.5 mg tablet 12.5 mg PO Q6H PRN #30 tab 10/28/20 Rx Patient History Medical History (Updated 02/24/21 @ 17:32 by Jeet Stanford MD) Asthma Bipolar disorder Bleeding stomach ulcer Bronchitis Chlamydia contact Dehydration Elective Exposure to chlamydia Extremity edema Extremity pain Gastritis Hot flashes HTN (hypertension) Hx of varicella Insomnia LGSIL on Pap smear of cervix Long-term current use of methadone for opiate dependence Maternal kidney stone Miscarriage Opiate withdrawal Pain, dental Pneumonia Right foot sprain Vaginal delivery Vomiting Vomiting Surgical History H/O LEEP History of tonsillectomy S/P ureteral stent placement placement and removal in 2019 Family History Other Cancer Diabetes Hypertension Myocardial infarction Stroke Social History Smoking Status: Current every day smoker Tobacco Type: Cigarettes Cigarettes Per Day: 5; Second Hand Exposure: Yes; Do You Dip or Chew Tobacco: No; Tobacco Cessation Education Requested by Patient: No Hx Alcohol Use: No Hx Substance Use: Yes Last Used Substance Other:: 2 years ago Preferred Language: Kazakh Communication Ability: Effective Industrial Waste Treatment Technician Required: No Beliefs That Will Affect Care: None marital status: marital status details: ALEYDA Schultz (38) [phone] Current Living Situation: Spouse Current Living Situation Comment: live with ALEYDA no children current occupational status: unemployed Other Information That Helps Us Care for You: No Feels Safe at Home: Yes Safety Concerns: Feels Safe At This Time Assistive Devices: None OB History Strokes 2 full-term vaginal deliveries in 2007 and 2010, she does not have custody of those 5 pound 14 ounce baby, 5 pounds 8 hours baby [employer] History Denies history of STDs, denies history of herpes, chlamydia, gonorrhea Review of Systems as per Subjective / HPI Physical Exam Constitutional: WD/WN, vitals as above well developed and well nourished Seems comfortable not in acute distress Genitourinary: normal external appearance OB Exam Abdomen: + vertex Manual OB Exam: + cervical dilation 1 cm, + cervical effacement 80% and + station -2 OB Exam Monitor Tracing: + external uterine monitor used and + category I Results & Data ([facility]) Vital Signs (Past 12 Hours) Vital Signs Temp Pulse Resp BP 02/24/21 15:08 105 H 139/83 02/24/21 15:05 36.8 C 105 H 20 139/83 Laboratory Results Lab Results 02/24/21 02/24/21 Range/Units 16:09 16:22 WBC 11.91 H (4.8-10.8) K/uL RBC 4.00 L (4.2-5.4) M/uL Hgb 11.9 L (12.0-16.0) g/dL Hct 35.2 L (37-47) % MCV 88.0 (80-100) fL MCH 29.8 (25-34) pg MCHC 33.8 (32-36) g/dL RDW Std Deviation 44.4 (36.4-46.3) fL RDW Coeff of Carey 13.6 (11.5-14.5) % Plt Count 296 (130-400) K/uL MPV 10.9 H (7.4-10.4) fL Urine Opiates Screen Neg (Neg) Ur Methadone, Qual Pos H (Neg) Urine Barbiturates Neg (Neg) Ur Phencyclidine (PCP) Neg (Neg) U Amphetamin/Meth Scrn Neg (Neg) MDMA (Ecstasy) Screen Neg (Neg) U Benzodiazepines Scrn Neg (Neg) Ur Cocaine Metabolite Neg (Neg) U Marijuana (THC) Screen Pos H (Neg)
[2021-02-24 17:59] LABS: Albumin Level 2.5 gm/dl (3.4-5.0); BUN Creatinine Ratio 13.1 (10-20); Calcium 8.4 mg/dl (8.5-10.1); Creatinine Clr Calc Pharmacy 128.1 ml/min; Est GFR (African American) 138.3 ml/min; Est GFR (Non-African American) 119.3 ml/min; Potassium 3.5 mmol/L (3.5-5.1)
[2021-02-24 18:02] LABS: Albumin Globulin Ratio 0.6 (0.9-2); Bilirubin,Total 0.2 mg/dl (0.2-1); Globulin 3.9 gm/dl (2.5-4.0); Total Protein 6.4 gm/dl (6.4-8.2)
[2021-02-25] MEDS ORDERED: LACTATED RINGER'S 1,000 ML IV ONE (03:22)
[2021-02-25] MEDS ORDERED: PROMETHAZINE HCL 25 MG TAB PO PRN ×2 (03:32→11:55)
[2021-02-25] MEDS ORDERED: OXYTOCIN 30 UNITS/500 ML BAG IV PRN ×2 (03:37→11:55)
--- NOTE | 2021-02-25 03:39 | Obstetrical Progress Note ---
Date of Service February 25, 2021 Assessment & Plan Admission and Anticipated Discharge Date Admission Date: February 24, 2021 Subjective Patient was reevaluated. Patient was placed in a bed, due to no nursing team available to start induction. She ate dinner last night but unable to drink now due to nausea and requesting her Phenergan. NST with a baseline of 130s with some accelerations but not meeting criteria for reactivity. No decelerations and there is minimal to moderate variability. Patient denies contractions, leakage of fluid, vaginal bleeding. She reports good movements. Plan to start IV fluid bolus and Phenergan for nausea as needed and start oxytocin challenge test and continue as induction if negative. All questions were answered. Results & Data ([facility]) Vital Signs (Past 12 Hours) Vital Signs Temp Pulse Resp BP Pulse Ox 02/25/21 03:00 36.5 C 76 20 120/76 98 02/25/21 00:07 36.4 C L 73 18 104/70 98 02/24/21 21:15 36.6 C 81 18 107/67 97
[2021-02-25] MEDS ORDERED: METHADONE ORAL SOLN 2 MG/ML PO SCH (06:00)
[2021-02-25] MEDS ORDERED: [UNRECOGNIZED DRUG - OTHER] PO SCH (06:00)
--- NOTE | 2021-02-25 09:17 | Labor Progress Brief Note ---
Date of Service February 25, 2021 Assessment & Plan Admission and Anticipated Discharge Date Admission Date: February 24, 2021 Physical Exam Genitourinary: Manual OB Exam: + cervical dilation 2 cm, + cervical effacement 100%, + station -2 and + amniotic fluid clear OB Exam Monitor Tracing: + external FHT monitor used, + external uterine monitor used, + category I and + normal FHT variability AROM with Amni-hook clear fluid Results & Data ([facility]) Vital Signs (Past 12 Hours) Vital Signs Temp Pulse Pulse Resp BP BP Pulse Ox 02/25/21 09:01 73 109/62 02/25/21 09:00 73 20 109/62 02/25/21 08:03 72 114/72 02/25/21 07:30 81 20 122/70 02/25/21 07:00 36.8 C 20 02/25/21 06:57 82 116/66 02/25/21 06:27 72 18 115/77 02/25/21 05:25 74 18 120/73 02/25/21 04:42 37.0 C 71 18 123/78 02/25/21 04:38 37.0 C 18 98 02/25/21 03:00 36.5 C 76 20 120/76 98 02/25/21 00:07 36.4 C L 73 18 104/70 98
--- NOTE | 2021-02-25 10:18 | Delivery Summary ---
Vaginal Delivery Summary Date of Service February 25, 2021 Vaginal Delivery Summary Delivery Note live male BENEDICT over intact perineum with delayed cord clamping and nuchal cord x1 reduced at delivery Apgars 9/9 weight pending. Cord blood obtained followed by spontaneous delivery of intact placenta. No tears. EBL 100 ml. Final sponge and instrument count are correct. Mom and baby stable.
[2021-02-25] MEDS ORDERED: ACETAMINOPHEN 325 MG TAB ONE (10:40)
[2021-02-25] MEDS ORDERED: bisacodyL 10 MG SUPP PR PRN (11:55)
[2021-02-25] MEDS ORDERED: HYDROCORTISONE ACETATE 25 MG SUPP PR PRN (11:55)
[2021-02-25] MEDS ORDERED: METOCLOPRAMIDE HCL 10 MG TABLET PO PRN (11:55)
[2021-02-25] MEDS ORDERED: DIPHTHERIA/TETANUS/PERTUSSIS 0.5 ML SYR/VIAL IM ONE (11:55)
[2021-02-25] MEDS ORDERED: ACETAMINOPHEN 325 MG TAB PO PRN (11:55)
[2021-02-25] MEDS ORDERED: SUPERCREAM 0.870% 15 GM JAR EXT PRN (11:55)
[2021-02-25] MEDS ORDERED: BENZOCAINE 20% AER SPR 82.5 GM CAN EXT PRN (11:55)
[2021-02-25] MEDS: IBUPROFEN 600 MG TAB PO PRN (18:02)
[2021-02-25] MEDS: DOCUSATE SODIUM 100 MG CAP PO SCH (21:07)
[2021-02-26] MEDS: IBUPROFEN 600 MG TAB PO PRN ×2 (04:45→19:31)
[2021-02-26] MEDS: METHADONE HCL 10 MG TAB PO SCH (05:34)
[2021-02-26 07:46] LABS: Hematocrit (blood only) 34.3 % (37-47); Hemoglobin 11.6 g/dL (12.0-16.0); Mean Corpuscular Hemoglobin 29.9 pg (25-34); Mean Corpuscular Hgb Conc 33.8 g/dL (32-36); Mean Corpuscular Volume 88.4 fL (80-100); Mean Platelet Volume 10.8 fL (7.4-10.4); Platelet Count 307 K/uL (130-400); RDW Coefficient of Variation 13.9 % (11.5-14.5); RDW Standard Deviation 45.1 fL (36.4-46.3); Red Blood Count 3.88 M/uL (4.2-5.4); White Blood Count 11.63 K/uL (4.8-10.8)
[2021-02-26] MEDS ORDERED: PRENATAL VITAMIN 1 TAB PO SCH (08:00)
[2021-02-26] MEDS: PRENATAL VITAMIN 1 TAB PO SCH ×2 (08:03→08:04)
[2021-02-26] MEDS: DOCUSATE SODIUM 100 MG CAP PO SCH ×2 (08:03→19:31)
[2021-02-26] MEDS: FERROUS SULFATE 325 MG TAB PO SCH (08:03)
[2021-02-26] MEDS ORDERED: METHADONE PO SCH (09:00)
[2021-02-26] MEDS ORDERED: bisacodyL 5 MG TABEC PO SCH (20:00)
[2021-02-27] MEDS: METHADONE HCL 10 MG TAB PO SCH (05:55)
[2021-02-27 08:03] LABS: Hematocrit (blood only) 35.9 % (37-47); Hemoglobin 12.1 g/dL (12.0-16.0)
[2021-02-27] MEDS: PRENATAL VITAMIN 1 TAB PO SCH (08:17)
[2021-02-27] MEDS: DOCUSATE SODIUM 100 MG CAP PO SCH (08:17)
[2021-02-27] MEDS: IBUPROFEN 600 MG TAB PO PRN (08:17)
[2021-02-27] MEDS: FERROUS SULFATE 325 MG TAB PO SCH (08:17)
--- NOTE | 2021-02-27 09:28 | Obstetrical Progress Note ---
Date of Service February 27, 2021 Assessment & Plan Admission and Anticipated Discharge Date Admission Date: February 24, 2021 Subjective Patient is seen and examined. She feels well, no complaints. Ambulating without dizziness Voiding without difficulty Tolerating regular diet with out N&V Bleeding is minimal No fever/ chills/ CP/ SOB/ N&V/ Leg pain Breast and feeding without problems Vital Signs Temp Pulse Resp BP 02/27/21 07:40 36.9 C 80 16 124/78 02/26/21 22:30 36.9 C 77 18 117/76 02/26/21 19:20 37.0 C 79 18 117/76 02/26/21 15:05 36.9 C 77 18 136/87 Lab Results 02/24/21 02/24/21 02/24/21 Range/Units 16:09 16:22 16:22 WBC 11.91 H (4.8-10.8) K/uL RBC 4.00 L (4.2-5.4) M/uL Hgb 11.9 L (12.0-16.0) g/dL Hct 35.2 L (37-47) % MCV 88.0 (80-100) fL MCH 29.8 (25-34) pg MCHC 33.8 (32-36) g/dL RDW Std Deviation 44.4 (36.4-46.3) fL RDW Coeff of Carey 13.6 (11.5-14.5) % Plt Count 296 (130-400) K/uL MPV 10.9 H (7.4-10.4) fL Sodium 134 L (136-145) mmol/L Potassium 3.5 (3.5-5.1) mmol/L Chloride 106 (98-107) mmol/L Carbon Dioxide 21 (21-32) mmol/L Anion Gap 7.0 (3-11) BUN 8 (7-18) mg/dl Creatinine 0.62 (0.6-1.2) mg/dl Est Cr Clr Drug Dosing 128.1 ml/min Est GFR ( Amer) 138.3 ml/min Est GFR (Non-Af Amer) 119.3 ml/min BUN/Creatinine Ratio 13.1 (10-20) Glucose 89 (70-99) mg/dl Calcium 8.4 L (8.5-10.1) mg/dl Total Bilirubin 0.2 (0.2-1) mg/dl AST 12 L (15-37) U/L ALT 14 (12-78) Alkaline Phosphatase 142 H D (45-117) U/L Total Protein 6.4 (6.4-8.2) gm/dl Albumin 2.5 L (3.4-5.0) gm/dl Globulin 3.9 (2.5-4.0) gm/dl Albumin/Globulin Ratio 0.6 L (0.9-2) Urine Opiates Screen Neg (Neg) Ur Methadone, Qual Pos H (Neg) Urine Barbiturates Neg (Neg) Ur Phencyclidine (PCP) Neg (Neg) U Amphetamin/Meth Scrn Neg (Neg) MDMA (Ecstasy) Screen Neg (Neg) U Benzodiazepines Scrn Neg (Neg) Ur Cocaine Metabolite Neg (Neg) U Marijuana (THC) Screen Pos H (Neg) SARS-CoV-2, RNA, NAAT (NEGATIVE) Blood Type Antibody Screen Screen (Negative) 02/24/21 02/26/21 02/26/21 Range/Units Unknown 07:14 07:14 WBC 11.63 H (4.8-10.8) K/uL RBC 3.88 L (4.2-5.4) M/uL Hgb 11.6 L (12.0-16.0) g/dL Hct 34.3 L (37-47) % MCV 88.4 (80-100) fL MCH 29.9 (25-34) pg MCHC 33.8 (32-36) g/dL RDW Std Deviation 45.1 (36.4-46.3) fL RDW Coeff of Carey 13.9 (11.5-14.5) % Plt Count 307 (130-400) K/uL MPV 10.8 H (7.4-10.4) fL Sodium (136-145) mmol/L Potassium (3.5-5.1) mmol/L Chloride (98-107) mmol/L Carbon Dioxide (21-32) mmol/L Anion Gap (3-11) BUN (7-18) mg/dl Creatinine (0.6-1.2) mg/dl Est Cr Clr Drug Dosing ml/min Est GFR ( Amer) ml/min Est GFR (Non-Af Amer) ml/min BUN/Creatinine Ratio (10-20) Glucose (70-99) mg/dl Calcium (8.5-10.1) mg/dl Total Bilirubin (0.2-1) mg/dl AST (15-37) U/L ALT (12-78) Alkaline Phosphatase (45-117) U/L Total Protein (6.4-8.2) gm/dl Albumin (3.4-5.0) gm/dl Globulin (2.5-4.0) gm/dl Albumin/Globulin Ratio (0.9-2) Urine Opiates Screen (Neg) Ur Methadone, Qual (Neg) Urine Barbiturates (Neg) Ur Phencyclidine (PCP) (Neg) U Amphetamin/Meth Scrn (Neg) MDMA (Ecstasy) Screen (Neg) U Benzodiazepines Scrn (Neg) Ur Cocaine Metabolite (Neg) U Marijuana (THC) Screen (Neg) SARS-CoV-2, RNA, NAAT NEGATIVE (NEGATIVE) Blood Type A Negative Antibody Screen NEGATIVE Screen Negative (Negative) 02/27/21 Range/Units 07:43 WBC (4.8-10.8) K/uL RBC (4.2-5.4) M/uL Hgb 12.1 (12.0-16.0) g/dL Hct 35.9 L (37-47) % MCV (80-100) fL MCH (25-34) pg MCHC (32-36) g/dL RDW Std Deviation (36.4-46.3) fL RDW Coeff of Carey (11.5-14.5) % Plt Count (130-400) K/uL MPV (7.4-10.4) fL Sodium (136-145) mmol/L Potassium (3.5-5.1) mmol/L Chloride (98-107) mmol/L Carbon Dioxide (21-32) mmol/L Anion Gap (3-11) BUN (7-18) mg/dl Creatinine (0.6-1.2) mg/dl Est Cr Clr Drug Dosing ml/min Est GFR ( Amer) ml/min Est GFR (Non-Af Amer) ml/min BUN/Creatinine Ratio (10-20) Glucose (70-99) mg/dl Calcium (8.5-10.1) mg/dl Total Bilirubin (0.2-1) mg/dl AST (15-37) U/L ALT (12-78) Alkaline Phosphatase (45-117) U/L Total Protein (6.4-8.2) gm/dl Albumin (3.4-5.0) gm/dl Globulin (2.5-4.0) gm/dl Albumin/Globulin Ratio (0.9-2) Urine Opiates Screen (Neg) Ur Methadone, Qual (Neg) Urine Barbiturates (Neg) Ur Phencyclidine (PCP) (Neg) U Amphetamin/Meth Scrn (Neg) MDMA (Ecstasy) Screen (Neg) U Benzodiazepines Scrn (Neg) Ur Cocaine Metabolite (Neg) U Marijuana (THC) Screen (Neg) SARS-CoV-2, RNA, NAAT (NEGATIVE) Blood Type Antibody Screen Screen (Negative) PE: General: Alert, orientedx3, NAD Abd: soft, NT, fundus firm, below Umbilicus Perineum intact, Lochia rubra minimal Ext; NT, no edema AP: 30 yo s/p , ppd# 2 VSS Afebrile doing well Continue routine care All questions were answered Discussed when to call D/C home/ nesting, f/u in office Results & Data ([facility]) Vital Signs (Past 12 Hours) Vital Signs Temp Pulse Resp BP 02/27/21 07:40 36.9 C 80 16 124/78 02/26/21 22:30 36.9 C 77 18 117/76
[2021-02-28 04:57] LABS: Marijuana Quant, GCMS Urine 1030 ng/mL (<5); Methadone, Ur Metabolite >10000 ng/mL (<100)
== END 2021-02-27 17:48 | disposition home or self-care (01) | DRG 806 ==
LOC: 4S2 15:01 → 4S1 02-25 04:34 → 4S2 02-25 15:33